=== PATIENT | male | born 1975 | race Caucasian/White ===

== ENCOUNTER 2020-07-24 06:36 | Outpatient (REF) | payer OTHER, SELFPAY ==
[2020-07-24 06:57] LABS: COVID-19 Test Negative (Negative)
== END 2020-07-24 06:37 | disposition home or self-care (01) ==
LOC: HO.LAB 06:36
PROVIDERS: Visit Provider Internal Medicine
DX: Z20.828 Contact with and (suspected) exposure to other viral communicable diseases (principal)
CPT/HCPCS: 87635

== ENCOUNTER 2020-10-16 12:10 | Outpatient (REF) | payer OTHER, SELFPAY ==
--- NOTE | 2020-10-16 12:21 | XR_ITS ---
EXAMINATION: XR CHEST CLINICAL INFORMATION: Dyspnea on exertion COMPARISON: None TECHNIQUE: 2 views of the chest were obtained. FINDINGS: There is mild cardiomegaly with mild prominence but vascularity but no congestion. The lungs are expanded and clear. No gross bony abnormality seen except for mild spondylosis dorsal spine. XR/XR chest 2V IMPRESSION: Mild cardiomegaly. No acute process.
== END 2020-10-16 12:11 | disposition home or self-care (01) ==
LOC: HO.XRAY 12:10
PROVIDERS: PCP Internal Medicine Sports Medicine; Visit Provider Physician Assistant
DX: I10 Essential (primary) hypertension (principal); R06.09 Other forms of dyspnea
CPT/HCPCS: 71046

== ENCOUNTER 2020-10-17 08:48 | Outpatient (REF) | payer OTHER, SELFPAY ==
--- NOTE | 2020-10-17 17:05 | PFT_ITS ---
INDICATIONS: 1. Dyspnea. 2. Shortness of breath. SPIROMETRY: The FEV1 to FVC 74% with an FEV1 of 1.67 L, which is 41% predicted and an FVC of 2.26 L, which is predicted. Post bronchodilator shows significant improvement of the FEV1 by 13%. Also to note, the patient has significant small airways disease. The maximum voluntary ventilation 53% predicted. LUNG VOLUMES: Total lung capacity only 60% predicted with an expiratory reserve volume of 16% predicted likely from elevated BMI. DIFFUSION CAPACITY: DLCO 73% predicted. It does correct to 131% predicted when correcting for the alveolar volume. COMPARISONS: None. INTERPRETATION: There is a moderate restrictive ventilatory defect likely secondary to his body habitus, although neuromuscular conditions cannot be ruled out. There is an obstructive physiology, although not definitively consistent. No definitive obstruction, although, has significant small airways disease, which could be attributed to asthma and also his morbid obesity. The was a significant response to bronchodilators. The Diffusion capacity was high when corrected for the alveolar volume. Clinical correlation warranted. MD SHANNON Madrigal/MODL / [id number] MTDD
== END 2020-10-17 08:49 | disposition home or self-care (01) ==
LOC: HO.RESP 08:48
PROVIDERS: Visit Provider Internal Medicine Pulmonary Disease
DX: R06.00 Dyspnea, unspecified (principal)
CPT/HCPCS: 94060; 94727; 94729

== ENCOUNTER → 2020-11-07 13:51 | Outpatient (REF) | payer OTHER, SELFPAY | LOC: HO.SL 13:51 | PROVIDERS: Visit Provider Internal Medicine Pulmonary Disease | DX: G47.33 Obstructive sleep apnea (adult) (pediatric) (principal) | CPT/HCPCS: 95806 ==

== ENCOUNTER → 2020-11-22 15:09 | Outpatient (BNVA) | payer OTHER, SELFPAY | PROVIDERS: PCP Internal Medicine Sports Medicine; Visit Provider Internal Medicine Pulmonary Disease | DX: R06.00 Dyspnea, unspecified (principal) ==

== ENCOUNTER → 2020-11-28 14:53 | Outpatient (REF) | payer OTHER, SELFPAY ==
--- NOTE | 2020-11-28 16:00 | CA_ITS ---
Transthoracic Echocardiogram Patient (Last, First, Middle): Denis Bower C Gender: Male Date of : 1975 Age: 45 Procedure Date: 11/28/2020 Procedure Type: Transthoracic Echocardiogram Location: OP Height: 177.8 cm Weight: 190.51 kg BSA: 2.86 m2 Heart Rate: bpm BP: 136 / 78 mmHg Egg Caser: SERJIO Referring MD: Carlton Tineo MD Symptoms: R06.00 - Dyspnea, unspecified Study Quality: Technically Difficult ECG Rhythm: Sinus Conclusions: - Visually estimated LVEF > 55%. - Valves not well visualized but no obvious pathology. - Otherwise, markedly limited study due to body habitus. Findings Procedure Information The patient receives contrast. Left Ventricle The left ventricle was not well visualized. Normal left ventricular cavity size. There is normal left ventricular wall thickness. The left ventricular systolic function is normal. Diastolic function is indeterminate on the basis of available data. Even with contrast use, difficult to assess wall motion. Visually estimated LVEF > 55%. Right Ventricle The right ventricle was not well visualized. Atria The left atrium was not well visualized. The right atrium was not well visualized. Aortic Valve The aortic valve was not well visualized. There is no aortic valve stenosis. There is no aortic valve regurgitation. Mitral Valve The mitral valve was not well visualized. No significant regurgitation or stenosis based on available images. Pulmonic Valve The pulmonic valve was not well visualized. Tricuspid Valve The tricuspid valve was not well visualized. There is no tricuspid valve regurgitation. Tricuspid regurgitation envelope is inadequate for calculation of right ventricular systolic pressure. Great Vessels The aorta was not well visualized. The aortic annulus and asc aorta are normal in size. Venous The inferior vena cava was not well visualized. Pericardium/Pleural There is no evidence of pericardial effusion. Prior Study Comparison No prior study available for comparison. Measurements M-Mode Liner Measurements Normals - Women/Men AOV Cusps: 3.30 1.5-2.6 cm/m2 2D Linear Measurements IVSd: 0.97 0.6-0.9/0.6-1.0 cm LVIDd: 5.55 3.9-5.3/4.2-5.9 cm LVIDd Index: 1.94 2.4-3.2/2.2-3.1 cm/m2 LVIDs: 4.74 2.0-3.6 cm LVPWd: 0.95 0.7-1.1 cm Ao Root: 3.20 2.1-3.5 cm LA Diam: 4.10 2.7-3.8/3.0-4.0 cm LAIDs Index: 1.43 1.5-2.3 cm/m2 LV Mass: 255.71 67-162/88-224 g LV Mass Index: 89.41 43-95/49-115 g/m2 Mitral Valve MV Pk E: 0.87 MV PK A: 0.87 MV Decel Time: 275.00 E/A: 1.00 PHT: 81.00 MVA PHT: 2.72 Decel [place]: 3.15 Aortic Valve AoV Pk Cesar: 1.40 AoV Pk Grad: 8.00 LVOT LVOT Pk Ceasr: 1.12 LVOT Mn Cesar: 0.76 LVOT VTI: 0.22 LVOT Pk Grad: 5.00 LVOT Mn Grad: 3.00 Diastolic Function MV Pk E: 0.87 MV Pk A: 0.87 E/A: 1.00 Great Vessels Aorta Ao Root-2D: 3.20 2.0-3.7 cm Ao Asc: 3.40 2.1-3.4 cm Pulmonary Valve PV Pk Cesar: 1.26 Peak PV Grad: 6.00 Updated in Other Vendor System with Status of Final Carl Hernandez MD electronically signed on 11/29/2020 4:38:47 PM with status of Final
== END ==
LOC: HO.CARD 14:53
PROVIDERS: Visit Provider Internal Medicine Pulmonary Disease
DX: R06.00 Dyspnea, unspecified (principal)
CPT/HCPCS: 93306; Q9957

== ENCOUNTER → 2021-03-07 15:25 | Outpatient (BNVA) | payer OTHER, SELFPAY | PROVIDERS: Visit Provider Internal Medicine Pulmonary Disease | DX: R06.00 Dyspnea, unspecified (principal) ==

== ENCOUNTER → 2021-06-06 15:35 | Outpatient (BNVA) | payer OTHER, SELFPAY | PROVIDERS: Visit Provider Internal Medicine Pulmonary Disease | DX: R06.00 Dyspnea, unspecified (principal); J45.909 Unspecified asthma, uncomplicated; G47.33 Obstructive sleep apnea (adult) (pediatric) ==

== ENCOUNTER → 2021-10-07 09:46 | Outpatient (BNVA) | payer OTHER, SELFPAY | PROVIDERS: PCP Internal Medicine; Visit Provider Internal Medicine Pulmonary Disease ==

== ENCOUNTER → 2021-10-10 15:50 | Outpatient (BNVA) | payer OTHER, SELFPAY | PROVIDERS: PCP Internal Medicine; Visit Provider Internal Medicine Pulmonary Disease ==

== ENCOUNTER → 2021-10-28 13:23 | Outpatient (BNVA) | payer OTHER, SELFPAY | PROVIDERS: PCP Internal Medicine; Visit Provider Internal Medicine Pulmonary Disease | DX: U09.9 Post COVID-19 condition, unspecified (principal); J45.909 Unspecified asthma, uncomplicated; R06.00 Dyspnea, unspecified; G47.33 Obstructive sleep apnea (adult) (pediatric) | CPT/HCPCS: 94618 ==

== ENCOUNTER → 2022-02-03 13:50 | Outpatient (BNVA) | payer OTHER, SELFPAY | PROVIDERS: PCP Internal Medicine; Visit Provider Internal Medicine Pulmonary Disease | DX: J45.909 Unspecified asthma, uncomplicated (principal) ==

== ENCOUNTER 2022-04-09 07:42 | Emergency (ER) | payer OTHER, SELFPAY ==
--- NOTE | ~2022-04-09 | XR_ITS ---
EXAMINATION: XR CHEST CLINICAL INFORMATION: Shortness breath. COMPARISON: October 16, 2020. TECHNIQUE: Portable AP view of the chest was obtained. XR/XR chest 1V FINDINGS/IMPRESSION: The study is limited by portable technique, low lung volumes, and overlying leads. There is no gross acute radiographic finding. No gross focal infiltrate, effusion, pneumothorax is seen. The cardiac silhouette is suboptimally evaluated. The mediastinum, diaphragm, and soft tissues appear unremarkable. There are mild degenerative changes of the spine.
--- NOTE | 2022-04-09 08:00 | ECG_ITS ---
Test Reason : dyspnea Blood Pressure : / mmHG Vent. Rate : 089 BPM Atrial Rate : 089 BPM P-R Int : 168 ms QRS Dur : 098 ms QT Int : 394 ms P-R-T Axes : 056 042 046 degrees QTc Int : 479 ms Normal sinus rhythm Possible Left atrial enlargement Borderline ECG No previous ECGs available Referred By: Elsie Cai Electronically Signed By:LIOR OJEDA MD
[2022-04-09 08:02] VITALS: BP 160/74; PULSE 90; RESP 20; TEMP 36.7; O2SAT 96; BMI 60.2
--- NOTE | 2022-04-09 08:10 | ED_ITS ---
HPI - General Adult General Chief complaint: Weakness Stated complaint: DIFF BREATHING Time Seen by Provider: 04/09/22 07:59 Source: patient, RN notes reviewed and old records reviewed Mode of arrival: ambulatory Limitations: no limitations History of Present Illness HPI narrative: This is a 46-year-old male, with past medical history asthma, hypertension, and BETSY, who presents to the emergency department with complaints of shortness of breath, dry cough, and fatigue since Wednesday, worsening today. Patient reports that over the last 4 days he has felt as though his asthma has been not controlled, currently taking Breo Ellipta and albuterol inhaler. He has been using his rescue inhaler 2 hours without relief. He is seen at [facility] yesterday and was given a Duo nebulizer updraft as well as prednisone 40 mg and Tessalon Perles, which has provided him with moderate relief yesterday however he feels as though his shortness of breath is worsened today. He had COVID-19, diagnosed on 09/20/2021. He had pneumonia shortly after and was also told he had an enlarged heart, has first cardiology appointment in May. He denies any chest pain, palpitations, fevers, chills, cough, abdominal pain, nausea, vomiting, or diarrhea. He denies any recent hospitalizations, surgeries, recent travels, blood clots or clotting disorders or previous cancer diagnosis. He has never been intubated for his asthma in the past. He is managed by heel boom operator, Dr. Tineo, last seen 02/15/22. No other complaints or concerns at this time. Onset (ago): day(s) Severity: moderate Severity scale (1-10): 5 Pain Consistency: constant Relieving factors: medication Exacerbating factors: movement Associated symptoms: denies other symptoms Treatments prior to arrival: other (albuterol inhaler 2 hours [employer]) Related Data Home Medications Medication Instructions Recorded Confirmed hydroxyzine HCl 25 mg tablet 25 mg PO BID PRN 10/17/20 lisinopril 30 mg tablet 30 mg PO DAILY 10/17/20 Previous Rx's Medication Instructions Recorded levofloxacin 750 mg tablet 750 mg PO DAILY 7 days #7 tabs 10/07/21 albuterol sulfate 90 mcg/actuation 2 puff PO Q4-6H PRN for wheezing 11/11/21 aerosol inhaler #8.5 grams Breo Ellipta 200 mcg-25 mcg/dose 1 ea PO DAILY #60 ea 03/23/22 powder for inhalation (fluticasone furoate-vilanterol) Allergies Allergy/AdvReac Type Severity Reaction Status Date / Time No Known Allergies Allergy Verified 02/03/22 13:53 Review of Systems Review of Systems: Constitutional: No Fever, No Chills, +Fatigue ENT/Mouth: No sore throat, No Rhinorrhea, No Swallowing Difficulty Eyes: No Eye Pain, No Swelling, No Redness Cardiovascular: No Chest Pain, + SOB, No Orthopnea, No Edema Respiratory: +Dry Cough, + Dyspnea, No Sputum, + Wheezing Gastrointestinal: No Nausea, No Vomiting, No Diarrhea, No abdominal Pain, No Hematochezia, No Melena Genitourinary: No Dysuria, No Urinary Frequency, No Hematuria Musculoskeletal: No joint pain, No Myalgias Skin: No Skin Lesions, No rash Neuro: No Weakness, No Numbness, No Dizziness, No Headache Psych: No Anxiety/Panic, No Depression Heme/Lymph: No Bruising, No Lymphadenopathy Endocrine: No Polyuria, No Polydipsia [facility] Past Medical History Medical History Asthma History of Hodgkin's lymphoma History of pulmonary embolism Hyperlipidemia Hypertension, essential, benign Morbid obesity with BMI of 60.0-69.9, adult BETSY (obstructive sleep apnea) Post covid-19 condition, unspecified (~08/2021) Surgical History History of tonsillectomy Social History Social History Patient Tobacco Use Status: Never used Tobacco Advance Directives: Yes Advance Directives Information Provided: Yes Advance Directives on File: No Physical Exam ED Vital Signs: Vital Signs - 24 hr 04/09/22 08:02 04/09/22 08:40 04/09/22 10:43 Temperature 98.1 F Pulse Rate 90 80 86 Respiratory Rate 20 16 21 H Blood Pressure 160/74 H 147/74 H Pulse Oximetry 96 92 Oxygen Delivery Method Room Air Room Air BMI result Body Mass Index 60.2 Const Other: Appearance: Alert. Oriented X3. No acute distress. Obese. Eyes: Pupils equal, round and reactive to light. EOMI ENT: Pharynx normal. Tonsils are nonerythematous, nonedematous, uvula is midline. TMs are nonerythematous, nonbulging. Neck: Normal inspection. Neck supple. CVS: Normal heart rate and rhythm. Pulses normal. Respiratory: Decreased breath sounds throughout, Expiratory wheezes in the right upper and right lower base. Speaks in 4-5 word sentences. No respiratory distress. Abdomen: Soft and nontender. +BS x4 Skin: Skin warm and dry. Normal skin color. Normal skin turgor. No rashes. Extremities: No lower extremity edema. Neuro: Oriented X 3. No motor deficit. No sensory deficit. Course Course Course Narrative: This is a 46-year-old male, with past medical history asthma and hypertension, who presents to the emergency department with complaints of shortness of breath and fatigue since Wednesday, worsening today. patient is hypertensive at 160/74, O2 saturation 96% on room air, all other vital signs are within normal limits. Plan: EKG, Chest x-ray, and labs ordered. Patient medicated with Albuterol 10mg updraft, magnesium 2g IV, and Solu-medrol 125mg IV. Reevaluation(s) Reevaluation #1: Patient currently receiving albuterol updraft. Lactic acid of 2.6. Ordered 1L of IV fluids. Patient vital signs remain stable at this time. Time: 09:05 Reevaluation #2: Patient was re-evaluated after updraft. Patient reports that he is feeling better and feels comfortable to go home. Lungs sounds improved, and wheezing resolved. Time: 10:35 Reevaluation #3: Patient's symptoms likely due to asthma exacerbation. Chest x-ray is unremarkable for acute pathology. BNP is negative, negative troponin, all ot her lab work is unremarkable today. Will discharge patient home. He has started a 5 day course of prednisone 40mg yesterday, advised to continue this plan. He also has a prescription for Tessalon for of advised that he can continue taking this medication if he finds any benefit. Patient instructed to follow-up with his heel boom operator, Dr. Tineo, educated that he would likely benefit from a [email or web address] machine at home. Stressed the importance of returning back to the emergency department if he develops any new or worsening shortness of breath, cough, chest pain, palpitations or any other worsening symptoms. Patient understands and agrees with this plan. Medical Decision Making Lab Data Result diagrams: 04/09/22 08:26 04/09/22 09:43 Labs: Lab Results 04/09/22 04/09/22 04/09/22 Range/Units 08:26 08:26 08:26 WBC 9.3 (4.8-10.8) X10*3/uL RBC 4.10 L (4.60-5.80) X10*6/uL Hgb 14.2 (14.0-18.0) g/dl Hct 42.1 (42.0-52.0) % MCV 102.7 H (80.0-98.0) fL MCH 34.6 H (27.0-33.0) pg MCHC 33.7 (31.0-36.0) g/dl RDW 13.4 (11.0-16.0) % Plt Count 186 (160-400) X10*3/uL MPV 9.5 (9.4-12.4) fL Immature Gran % (Auto) 0.5 H (0.0-0.4) % Neut % (Auto) 90.8 H (45-73) % Lymph % (Auto) 5.0 L (20-40) % Cuming % (Auto) 3.2 (2-11) % Eos % (Auto) 0.2 (0-4) % Baso % (Auto) 0.3 (0-2) % Lymph # (Auto) 0.5 L (1.2-4.9) X10*3/uL Cuming # (Auto) 0.3 (0.1-1.2) X10*3/uL Eos # (Auto) 0.0 (0.0-0.4) X10*3/uL Baso # (Auto) 0.0 (0.0-0.2) X10*3/uL Abs Immat Gran (auto) 0.05 H (0.00-0.03) X10*3/uL Absolute Neuts (auto) 8.4 H (2.0-8.3) x10*3/uL Absolute Nucleated RBC 0.000 (0.0-0.012) X10*3/uL Nucleated RBC % (auto) 0.0 (0.0-0.2) /100WBC Sodium (135-145) mmol/L Potassium (3.3-5.1) mmol/L Chloride (96-108) mmol/L Carbon Dioxide (22-29) mmol/L Anion Gap (12-20) BUN (9-16) mg/dL Creatinine (0.5-1.4) mg/dL Estim Creat Clear Calc Estimated GFR Random Glucose (60-115) mg/dL Lactic Acid (0.5-2.0) mmol/L Calcium (8.4-10.2) mg/dL Magnesium (1.6-2.6) mg/dL Total Bilirubin (0.0-1.0) mg/dL Direct Bilirubin (0.0-0.5) mg/dL AST (5-37) U/L ALT (0-40) U/L Alkaline Phosphatase (39-117) U/L Troponin I High Sens 3.9 (<3.5-35.0) ng/L B-Natriuretic Peptide 68 (<100) pg/mL Total Protein (6.5-8.0) g/dL Albumin (3.5-5.0) g/dL Procalcitonin ng/mL COVID-19 (RENEA) Negative (Negative) COVID-19 Clin Com See Note 04/09/22 04/09/22 04/09/22 Range/Units 08:35 09:43 09:43 WBC (4.8-10.8) X10*3/uL RBC (4.60-5.80) X10*6/uL Hgb (14.0-18.0) g/dl Hct (42.0-52.0) % MCV (80.0-98.0) fL MCH (27.0-33.0) pg MCHC (31.0-36.0) g/dl RDW (11.0-16.0) % Plt Count (160-400) X10*3/uL MPV (9.4-12.4) fL Immature Gran % (Auto) (0.0-0.4) % Neut % (Auto) (45-73) % Lymph % (Auto) (20-40) % Cuming % (Auto) (2-11) % Eos % (Auto) (0-4) % Baso % (Auto) (0-2) % Lymph # (Auto) (1.2-4.9) X10*3/uL Cuming # (Auto) (0.1-1.2) X10*3/uL Eos # (Auto) (0.0-0.4) X10*3/uL Baso # (Auto) (0.0-0.2) X10*3/uL Abs Immat Gran (auto) (0.00-0.03) X10*3/uL Absolute Neuts (auto) (2.0-8.3) x10*3/uL Absolute Nucleated RBC (0.0-0.012) X10*3/uL Nucleated RBC % (auto) (0.0-0.2) /100WBC Sodium 137 (135-145) mmol/L Potassium 4.5 (3.3-5.1) mmol/L Chloride 99 (96-108) mmol/L Carbon Dioxide 24 (22-29) mmol/L Anion Gap 19 (12-20) BUN 10 (9-16) mg/dL Creatinine 0.71 (0.5-1.4) mg/dL Estim Creat Clear Calc 220.6 Estimated GFR > 60 Random Glucose 125 H (60-115) mg/dL Lactic Acid 2.6 H* (0.5-2.0) mmol/L Calcium 9.4 (8.4-10.2) mg/dL Magnesium 2.1 (1.6-2.6) mg/dL Total Bilirubin 0.9 (0.0-1.0) mg/dL Direct Bilirubin 0.4 (0.0-0.5) mg/dL AST 33 (5-37) U/L ALT 38 (0-40) U/L Alkaline Phosphatase 103 (39-117) U/L Troponin I High Sens (<3.5-35.0) ng/L B-Natriuretic Peptide (<100) pg/mL Total Protein 7.5 (6.5-8.0) g/dL Albumin 4.2 (3.5-5.0) g/dL Procalcitonin 0.11 ng/mL COVID-19 (RENEA) (Negative) COVID-19 Clin Com Imaging Data Chest x-ray: Attestation: I personally reviewed and interpreted this imaging study as follows: Radiologist's impression: CLINICAL INFORMATION: Shortness breath. COMPARISON: October 16, 2020. TECHNIQUE: Portable AP view of the chest was obtained. XR/XR chest 1V FINDINGS/IMPRESSION: ? The study is limited by portable technique, low lung volumes, and overlying leads. ? There is no gross acute radiographic finding. ? No gross focal infiltrate, effusion, pneumothorax is seen. ? The cardiac silhouette is suboptimally evaluated. The mediastinum, diaphragm, and soft tissues appear unremarkable. ? There are mild degenerative changes of the spine. Dictated By: Evgeny Branch ECG Data Attestation: I personally reviewed and interpreted this ECG as follows: Prior ECG tracings: available for review Interpretation: Normal sinus rhythm at 89BPM, PA interval 168, QT/QTC 394/479. T-wave inversion in V1 and V2. No ST elevations or depressions. No previous EKG on file for comparison. Critical Care Time Critical Care Time Critical Care Time: Yes Total Critical Care Time: 35 Attestation: I have personally provided critical care time exclusive of time spent on separately billable procedures. Time includes review of lab data, radiology results,frequent bedside reassessments, and monitoring for potential decompensation. Intervention performed as documented. Discharge Plan Discharge Clinical Impression: Asthma Patient Disposition: Home, Self-Care Instructions: Asthma (ED) Additional Instructions: Your symptoms today are likely due to an asthma exacerbation. Your chest x-ray was negative for any pneumonia. Please continue course of prednisone, you can take your dose today. Please continue taking your albuterol inhaler as needed for shortness of breath. You may also continue taking Tessalon Perles given to you at [facility] as needed for cough. Please follow up with your heel boom operator, Dr. Tineo. If you develop new or worsening symptoms call 911 or come back to the ER for further evaluation. Prescriptions: No Action albuterol sulfate 90 mcg/actuation HFA aerosol inhaler 2 puff PO Q4-6H PRN (Reason: for wheezing) Qty: 8.5 0RF Breo Ellipta 200-25 mcg/dose blister with device 1 ea PO DAILY Qty: 60 0RF lisinopril 30 mg tablet 30 mg PO DAILY hydroxyzine HCl 25 mg tablet 25 mg PO BID PRN levofloxacin 750 mg tablet 750 mg PO DAILY 7 Days Qty: 7 0RF
[2022-04-09 08:34] LABS: Basophils Percent Auto 0.3 % (0-2); Eosinophils Percent Auto 0.2 % (0-4); Hematocrit 42.1 % (42.0-52.0); Hemoglobin 14.2 g/dl (14.0-18.0); Imm Gran Abs Auto 0.05 X10*3/uL (0.00-0.03); Imm Gran Pct Auto 0.5 % (0.0-0.4); Lymphocytes Absolute Auto 0.5 X10*3/uL (1.2-4.9); MANUAL DIFF FLAG SCAN; Mean Corpuscular HGB Conc 33.7 g/dl (31.0-36.0); Mean Corpuscular Hemoglobin 34.6 pg (27.0-33.0); Mean Corpuscular Volume 102.7 fL (80.0-98.0); Mean Platelet Volume 9.5 fL (9.4-12.4); Monocytes Absolute Auto 0.3 X10*3/uL (0.1-1.2); Monocytes Percent Auto 3.2 % (2-11); Neutrophils Absolute Auto 8.4 x10*3/uL (2.0-8.3); Neutrophils Percent Auto 90.8 % (45-73); Platelet Count 186 X10*3/uL (160-400); Red Cell Distribution Width 13.4 % (11.0-16.0); SCAN SMEAR FLAG 1; White Blood Count 9.3 X10*3/uL (4.8-10.8)
[2022-04-09] MEDS: Magnesium Sulfate/H2O 2 GM/50 ML PIGGYBACK IV (08:36)
[2022-04-09] MEDS: methylPREDNISolone Sod Succ 125 MG/2 ML VIAL IVPUSH (08:37)
[2022-04-09] MEDS: Albuterol Sulfate (0.083%) 2.5 MG/3 ML VIAL.NEB 10 MG INHALE (08:39)
[2022-04-09 08:40] VITALS: PULSE 80; RESP 16; O2SAT 94
[2022-04-09 08:49] LABS: COVID-19 Test Negative (Negative); IDNOW Serial# 16C4AD1C
[2022-04-09 08:54] LABS: B Type Natriuretic Peptide 68 pg/mL (<100); Troponin-I High Sensitivity 3.9 ng/L (<3.5-35.0)
[2022-04-09 08:59] LABS: Lactic Acid 2.6 mmol/L (0.5-2.0)
[2022-04-09] MEDS: 0.9 % Sodium Chloride 1,000 ML 999 ML IVCONT (09:10)
[2022-04-09 10:35] LABS: Alanine Aminotransferase 38 U/L (0-40); Albumin Level 4.2 g/dL (3.5-5.0); Alkaline Phosphatase 103 U/L (39-117); Anion Gap 19 (12-20); Aspartate Amino Transferase 33 U/L (5-37); Bilirubin Direct 0.4 mg/dL (0.0-0.5); Bilirubin Total 0.9 mg/dL (0.0-1.0); Blood Urea Nitrogen 10 mg/dL (9-16); Calcium 9.4 mg/dL (8.4-10.2); Carbon Dioxide 24 mmol/L (22-29); Chloride 99 mmol/L (96-108); Creatinine Clr Calc Pharmacy 220.6; Estimated Glomerular Filt Rate > 60; Glucose Random 125 mg/dL (60-115); Magnesium 2.1 mg/dL (1.6-2.6); Potassium 4.5 mmol/L (3.3-5.1); Sodium 137 mmol/L (135-145); Total Protein 7.5 g/dL (6.5-8.0)
[2022-04-09 10:39] LABS: Reflex Lactate? Lactic Acid Added
[2022-04-09 10:43] VITALS: BP 147/74; PULSE 86; RESP 21; O2SAT 92
[2022-04-09 10:53] LABS: Procalcitonin 0.11 ng/mL
[2022-04-09 11:03] LABS: SLIDE REVIEW VERIFIED
== END 2022-04-09 11:09 | disposition home or self-care (01) ==
PROVIDERS: Physician Assistant; Emergency Provider Emergency Medicine
DX: J45.909 Unspecified asthma, uncomplicated (principal); R06.02 Shortness of breath; Z20.822 Contact with and (suspected) exposure to COVID-19; Z79.899 Other long term (current) drug therapy
CPT/HCPCS: 36415; 71045; 80048; 80076; 83605; 83735; 83880; 84145; 84484; 85025; 87040; 87635; 93005; 94640; 94644; 99285; J2930; J3475

== ENCOUNTER 2022-04-13 07:19 | Observation (INO) | payer OTHER, SELFPAY ==
[2022-04-13] VITALS (9 sets, daily range): BP systolic 140–172; BP diastolic 60–89; PULSE 68–108; RESP 16–22; TEMP 36.3–36.8; O2SAT 93–96; BMI 60.2
--- NOTE | ~2022-04-13 | XR_ITS ---
EXAMINATION: XR CHEST CLINICAL INFORMATION: Shortness of breath. History of asthma. COMPARISON: April 09, 2022 and October 16, 2020 TECHNIQUE: PA view of the chest was obtained. FINDINGS: The cardiopericardial silhouette is mildly enlarged. There is no evidence of acute parenchymal disease, pneumothorax, or pleural effusion. No evidence of pulmonary edema. XR/XR chest 1V IMPRESSION: No acute disease.
[2022-04-13 08:11] LABS: MANUAL DIFF FLAG NO
[2022-04-13 08:25] LABS: Basophils Percent Auto 0.3 % (0-2); Eosinophils Absolute Auto 0.3 X10*3/uL (0.0-0.4); Eosinophils Percent Auto 3.5 % (0-4); Hematocrit 40.6 % (42.0-52.0); Hemoglobin 13.4 g/dl (14.0-18.0); Imm Gran Abs Auto 0.05 X10*3/uL (0.00-0.03); Imm Gran Pct Auto 0.7 % (0.0-0.4); Lymphocytes Absolute Auto 0.5 X10*3/uL (1.2-4.9); Lymphocytes Percent Auto 6.5 % (20-40); Mean Corpuscular Hemoglobin 33.4 pg (27.0-33.0); Mean Corpuscular Volume 101.2 fL (80.0-98.0); Mean Platelet Volume 9.3 fL (9.4-12.4); Monocytes Absolute Auto 0.4 X10*3/uL (0.1-1.2); Monocytes Percent Auto 5.8 % (2-11); Neutrophils Percent Auto 83.2 % (45-73); Platelet Count 140 X10*3/uL (160-400); Red Blood Count 4.01 X10*6/uL (4.60-5.80); Red Cell Distribution Width 13.6 % (11.0-16.0); White Blood Count 7.2 X10*3/uL (4.8-10.8)
[2022-04-13 08:35] LABS: Alanine Aminotransferase 48 U/L (0-40); Albumin Level 4.1 g/dL (3.5-5.0); Alkaline Phosphatase 89 U/L (39-117); Anion Gap 14 (12-20); Aspartate Amino Transferase 45 U/L (5-37); Bilirubin Total 1.4 mg/dL (0.0-1.0); Blood Urea Nitrogen 20 mg/dL (9-16); Calcium 8.7 mg/dL (8.4-10.2); Carbon Dioxide 34 mmol/L (22-29); Chloride 92 mmol/L (96-108); Creatinine Clr Calc Pharmacy 193.4; Estimated Glomerular Filt Rate > 60; Glucose Random 110 mg/dL (60-115); Potassium 3.9 mmol/L (3.3-5.1); Sodium 136 mmol/L (135-145); Total Protein 6.8 g/dL (6.5-8.0)
[2022-04-13 08:38] LABS: COVID-19 Test Negative (Negative)
[2022-04-13 08:40] LABS: B Type Natriuretic Peptide 82 pg/mL (<100)
[2022-04-13] MEDS: Albuterol Sulfate (0.083%) 2.5 MG/3 ML VIAL.NEB 10 MG INHALE (11:13)
[2022-04-13 11:38] LABS: D Dimer High Sensitivity 153 NG/ML
--- NOTE | 2022-04-13 12:05 | ED_ITS ---
HPI - SOB/Dyspnea General Chief Complaint: Dyspnea Stated Complaint: diff breathing Time Seen by Provider: 04/13/22 10:40 Source: patient Mode of arrival: ambulatory Limitations: no limitations History of Present Illness HPI Narrative: Patient presents emergency department for evaluation of difficulty breathing honey rtness of breath. He reports that he was evaluated at an urgent care 03/29 and was given a prescription for a prednisone taper which he completed yesterday. Additionally he was seen in the emergency department 04/09 for difficulty breathing, at that time he was discharged home with an asthma exacerbation. He reports coming back to the emergency department today as he is still feeling significantly dyspnea on exertion. At rest he has some shortness of breath. Reports he has been using his albuterol inhaler every 4 hours at home. Denies headache, dizziness, lightheadedness, chest pain, palpitations, nausea, vomiting, abdominal pain, generalized weakness, numbness or tingling in his extremities. Denies past history of DVT/PE, reports past medical history of Hodgkin's lymphoma in remission. Related Data Home Medications Medication Instructions Recorded Confirmed lisinopril 30 mg tablet 30 mg PO DAILY 10/17/20 04/13/22 fluticasone propionate 50 1 spray intranasal DAILY 04/13/22 04/13/22 mcg/actuation nasal spray,suspension hydrochlorothiazide 25 mg tablet 25 mg PO DAILY 04/13/22 04/13/22 Previous Rx's Medication Instructions Recorded albuterol sulfate 90 mcg/actuation 2 puff PO Q4-6H PRN for wheezing 11/11/21 aerosol inhaler #8.5 grams Breo Ellipta 200 mcg-25 mcg/dose 1 ea PO DAILY #60 ea 03/23/22 powder for inhalation (fluticasone furoate-vilanterol) Allergies Allergy/AdvReac Type Severity Reaction Status Date / Time No Known Allergies Allergy Verified 02/03/22 13:53 Review of Systems Review of Systems: Constitutional : No Fever, No Chills ENT/Mouth : No sore throat, No Rhinorrhea, No Swallowing Difficulty Eyes: No Eye Pain, No Swelling, No Redness Cardiovascular : No Chest Pain, positive SOB, positive Orthopnea, no Edema Respiratory : No Cough, No Sputum, No Wheezing, positive dyspnea Gastrointestinal : No Nausea, No Vomiting, No Diarrhea, No abdominal Pain, No Hematochezia, No Melena Genitourinary : No Dysuria, No Urinary Frequency, No Hematuria Musculoskeletal : No joint pain, No Myalgias Skin : No Skin Lesions, No rash Neuro : No Weakness, No Numbness, No Dizziness, No Headache Psych : No Anxiety/Panic, No Depression Heme/Lymph: No Bruising, No Lymphadenopathy Endocrine : No Polyuria, No Polydipsia Yes all other systems are reviewed and are negative [facility] Past Medical History Source: old records reviewed Medical History (Updated 04/13/22 @ 16:24 by Evangelista Trotter MD) Asthma History of Hodgkin's lymphoma History of pulmonary embolism Hyperlipidemia Hypertension, essential, benign Moderate persistent asthma Morbid obesity with BMI of 60.0-69.9, adult BETSY (obstructive sleep apnea) Post covid-19 condition, unspecified (~08/2021) Surgical History History of tonsillectomy Social History Social History Patient Tobacco Use Status: Never used Tobacco Advance Directives: Yes Advance Directives Information Provided: Yes Advance Directives on File: No Physical Exam Vital Signs: Vital Signs: Last Vital Signs Temp 97.4 F 04/13/22 16:00 Pulse 68 04/13/22 16:00 Resp 16 04/13/22 16:00 BP 172/89 H 04/13/22 16:00 Pulse Ox 95 04/13/22 16:00 O2 Del Method 04/13/22 16:00 BMI result Body Mass Index 60.2 Appearance: Alert.?Oriented to person, place and time. No acute distress.?Normal affect. Eyes: Pupils equal, round and reactive to light.? ENT: Pharynx normal.?? Neck: Normal inspection.? Neck supple.?? CVS: Heart sounds normal. Normal heart rate and rhythm.? Pulses normal.?? Respiratory: No respiratory distress.? Lung sounds clear at the apices, diminished at the bilateral bases Abdomen: Soft and non-tender. Normoactive bowel sounds. No pulsatile mass.?? Skin: Skin warm and dry.? Normal skin color.? Normal skin turgor.?? Extremities: No lower extremity edema.? No calf ttp? Neuro: Moves all extremities spontaneously. Sensation intact bilaterally. CN II- XII intact. No focal neuro deficits. Ambulates with normal steady gait. Course Course Course Narrative: Patient is a 46-year-old male with a past medical history of asthma, hypertension, obstructive sleep apnea with CPAP, hyperlipidemia, Hodgkin's lymphoma in remission since 2010. He presents emergency department today for evaluation of dyspnea on exertion. Recently being treated for an asthma exacerbation, having completed a course of prednisone 2 days ago. Will obtain CBC to evaluate for leukocytosis/ anemia, CMP to evaluate for abnormal electrolytes /abnormal renal function/ abnormal hepatic function, EKG and troponin to evaluate for ischemia/ACS. D-dimer to exclude pulmonary embolism. Chest x-ray to evaluate for consolidation/ infiltrate/ mass/ pulmonary congestion. Patient received albuterol 10 mg updraft, in addition to prednisone orally. Reevaluation(s) Reevaluation #1: Received albuterol 10 mg nebulizer, with improvement in his symptoms, increased air movement. Able to ambulate throughout the ED with O2 saturation maintaining greater than 93%, mild tachycardia at 108, were patient does report feeling significantly dyspnea during that time. Labs overall unremarkable, D-Dimer 153, unlikely pulmonary embolism. Troponin 4.0, EKG reveals normal sinus rhythm, consistent with prior EKG on 04/09, however QT slightly longer at this time, 497, shortness of breath unlikely secondary to ACS. Spoke with patient at this time, he does not feel comfortable with being discharged home. Peak flow 200, for his height and age should be greater than 600. Suspect that his dyspnea on exertion continues to be secondary to asthma exacerbation, discussed with hospitalist, Dr. Trotter, accepted patient for admission for asthma exacerbation. Time: 13:08 MDM - SOB/Dyspnea Medical Records Attestation: I reviewed the patient's medical records. Lab Data Attestation: I reviewed the patient's lab results. Result diagrams: 04/13/22 07:56 04/13/22 07:56 Labs: Lab Results 04/13/22 04/13/22 04/13/22 Range/Units 07:56 07:56 07:56 WBC 7.2 (4.8-10.8) X10*3/uL RBC 4.01 L (4.60-5.80) X10*6/uL Hgb 13.4 L (14.0-18.0) g/dl Hct 40.6 L (42.0-52.0) % MCV 101.2 H (80.0-98.0) fL MCH 33.4 H (27.0-33.0) pg MCHC 33.0 (31.0-36.0) g/dl RDW 13.6 (11.0-16.0) % Plt Count 140 L (160-400) X10*3/uL MPV 9.3 L (9.4-12.4) fL Immature Gran % (Auto) 0.7 H (0.0-0.4) % Neut % (Auto) 83.2 H (45-73) % Lymph % (Auto) 6.5 L (20-40) % [place] % (Auto) 5.8 (2-11) % Eos % (Auto) 3.5 (0-4) % Baso % (Auto) 0.3 (0-2) % Lymph # (Auto) 0.5 L (1.2-4.9) X10*3/uL [place] # (Auto) 0.4 (0.1-1.2) X10*3/uL Eos # (Auto) 0.3 (0.0-0.4) X10*3/uL Baso # (Auto) 0.0 (0.0-0.2) X10*3/uL Abs Immat Gran (auto) 0.05 H (0.00-0.03) X10*3/uL Absolute Neuts (auto) 6.0 (2.0-8.3) x10*3/uL Absolute Nucleated RBC 0.000 (0.0-0.012) X10*3/uL Nucleated RBC % (auto) 0.0 (0.0-0.2) /100WBC D-Dimer High Sensitivty NG/ML Sodium 136 (135-145) mmol/L Potassium 3.9 (3.3-5.1) mmol/L Chloride 92 L (96-108) mmol/L Carbon Dioxide 34 H (22-29) mmol/L Anion Gap 14 (12-20) BUN 20 H D (9-16) mg/dL Creatinine 0.81 (0.5-1.4) mg/dL Estim Creat Clear Calc 193.4 Estimated GFR > 60 Random Glucose 110 (60-115) mg/dL Calcium 8.7 D (8.4-10.2) mg/dL Total Bilirubin 1.4 H (0.0-1.0) mg/dL AST 45 H (5-37) U/L ALT 48 H (0-40) U/L Alkaline Phosphatase 89 (39-117) U/L Troponin I High Sens 4.0 (<3.5-35.0) ng/L B-Natriuretic Peptide 82 (<100) pg/mL Total Protein 6.8 (6.5-8.0) g/dL Albumin 4.1 (3.5-5.0) g/dL COVID-19 (RENEA) (Negative) COVID-19 Clin Com 04/13/22 04/13/22 Range/Units 07:56 11:19 WBC (4.8-10.8) X10*3/uL RBC (4.60-5.80) X10*6/uL Hgb (14.0-18.0) g/dl Hct (42.0-52.0) % MCV (80.0-98.0) fL MCH (27.0-33.0) pg MCHC (31.0-36.0) g/dl RDW (11.0-16.0) % Plt Count (160-400) X10*3/uL MPV (9.4-12.4) fL Immature Gran % (Auto) (0.0-0.4) % Neut % (Auto) (45-73) % Lymph % (Auto) (20-40) % [place] % (Auto) (2-11) % Eos % (Auto) (0-4) % Baso % (Auto) (0-2) % Lymph # (Auto) (1.2-4.9) X10*3/uL [place] # (Auto) (0.1-1.2) X10*3/uL Eos # (Auto) (0.0-0.4) X10*3/uL Baso # (Auto) (0.0-0.2) X10*3/uL Abs Immat Gran (auto) (0.00-0.03) X10*3/uL Absolute Neuts (auto) (2.0-8.3) x10*3/uL Absolute Nucleated RBC (0.0-0.012) X10*3/uL Nucleated RBC % (auto) (0.0-0.2) /100WBC D-Dimer High Sensitivty 153 NG/ML Sodium (135-145) mmol/L Potassium (3.3-5.1) mmol/L Chloride (96-108) mmol/L Carbon Dioxide (22-29) mmol/L Anion Gap (12-20) BUN (9-16) mg/dL Creatinine (0.5-1.4) mg/dL Estim Creat Clear Calc Estimated GFR Random Glucose (60-115) mg/dL Calcium (8.4-10.2) mg/dL Total Bilirubin (0.0-1.0) mg/dL AST (5-37) U/L ALT (0-40) U/L Alkaline Phosphatase (39-117) U/L Troponin I High Sens (<3.5-35.0) ng/L B-Natriuretic Peptide (<100) pg/mL Total Protein (6.5-8.0) g/dL Albumin (3.5-5.0) g/dL COVID-19 (RENEA) Negative (Negative) COVID-19 Clin Com See Note Imaging Data Chest x-ray: Radiologist's impression: FINDINGS: The cardiopericardial silhouette is mildly enlarged. There is no evidence of acute parenchymal disease, pneumothorax, or pleural effusion. No evidence of pulmonary edema. XR/XR chest 1V IMPRESSION: No acute disease. ECG Data Attestation: I personally reviewed and interpreted this ECG as follows: ECG interpretation date: 04/13/22 Interpretation: Rate: 86 Rhythm:? Normal sinus rhythm [place]:? Normal Normal P waves.? Normal REJI.?? Normal QRS complex.?? ST T wave :??No ST elevation, no ST depression qTC: 497 prior studies:? March 2022 The study has been interpreted contemporaneously by me. Discharge Plan Discharge Clinical Impression: Asthma with exacerbation Patient Disposition: Admitted As Inpatient
--- NOTE | 2022-04-13 12:13 | ECG_ITS ---
Test Reason : dyspnea Blood Pressure : / mmHG Vent. Rate : 086 BPM Atrial Rate : 086 BPM P-R Int : 170 ms QRS Dur : 102 ms QT Int : 416 ms P-R-T Axes : 057 049 042 degrees QTc Int : 497 ms Normal sinus rhythm Nonspecific ST abnormality Prolonged QT Abnormal ECG When compared with ECG of 09-APR-2022 07:41, No significant change was found Referred By: Elina Aceves Electronically Signed By:Justin Aguayo
[2022-04-13] MEDS: predniSONE 20 MG TABLET 60 MG PO (13:21)
--- NOTE | 2022-04-13 16:01 | PM.IMHP ---
History of Present Illness Date of Service: 04/13/22 Chief Complaint: Shortness of breath 46 year old male with past medical history morbid obesity BMI of 60,moderate persistent asthma, hypertension, obstructive sleep apnea uses CPAP, hyperlipidemia, Hodgkin's lymphoma in remission since 2010.? He comes in because of shortness of breath that is ongoing for sevral days, worst with exertion associated with no fever or chils, dry cough, of note he completed a course of corticosteroid for asthma just 2 days earlier for presumed exacerbation of asthma. CXR is fine, normal WBC, negative covid, normal BNP,. Review of Systems Review of Systems: Gen: no fever Resp: +sob, no cough CV: no chest, no GARCIAS, no leg edema GI: No n/v, no abd pain Neuro: No confusion [facility] Medical History (Updated 04/13/22 @ 16:24 by Evangelista Trotter MD) Asthma History of Hodgkin's lymphoma History of pulmonary embolism Hyperlipidemia Hypertension, essential, benign Moderate persistent asthma Morbid obesity with BMI of 60.0-69.9, adult BETSY (obstructive sleep apnea) Post covid-19 condition, unspecified (~08/2021) Surgical History History of tonsillectomy Social History Patient Tobacco Use Status: Never used Tobacco Advance Directives: Yes Advance Directives Information Provided: Yes Advance Directives on File: No Meds Allergies Allergy/AdvReac Type Severity Reaction Status Date / Time No Known Allergies Allergy Verified 02/03/22 13:53 Home Medications Medication Instructions Recorded Confirmed Last Taken Type lisinopril 30 mg tablet 30 mg PO DAILY 10/17/20 04/13/22 04/13/22 History fluticasone propionate 50 1 spray intranasal DAILY 04/13/22 04/13/22 04/13/22 History mcg/actuation nasal spray,suspension hydrochlorothiazide 25 mg tablet 25 mg PO DAILY 04/13/22 04/13/22 04/13/22 History Physical Exam Vital Signs and Narrative: Vital Signs: Last Vital Signs Temp 97.8 F 04/13/22 07:34 Pulse 108 H 04/13/22 11:54 Resp 22 H 04/13/22 11:54 BP 140/69 H 04/13/22 10:24 Pulse Ox 93 04/13/22 11:54 O2 Del Method 04/13/22 11:54 BMI result Body Mass Index 60.2 Const: Other: Constitutional: Alert, in no distress, overweight. Mental Status: Oriented to person, place and time. Eyes: Pupils are equal, round and reactive to light. Ear, Nose and Throat: Oropharynx clear, mucous membranes moist. Ears and nose without eformities. Trachea midline. Respiratory: diminish air entry, no wheezes, no accessory muslce usei. Cardiovascular: S1 S2 regular. No murmurs, rubs or gallops. Gastrointestinal: Abdomen soft, non-tender, non-distended. Normal bowel sounds.? Neurologic: Cranial nerves II-XII grossly intact. No focal neurological deficits. Moves all extremities spontaneously.? Skin: No rashes or lesions.? Musculoskeletal: No cyanosis or clubbing. Psychiatric: Normal mood and affect? Results Labs CBC and Chem 7: 04/13/22 07:56 04/13/22 07:56 Labs: Laboratory Results - last 24 hr 04/13/22 04/13/22 04/13/22 07:56 07:56 07:56 MCV 101.2 H MCH 33.4 H MCHC 33.0 RDW 13.6 Plt Count 140 L MPV 9.3 L Immature Gran % (Auto) 0.7 H Neut % (Auto) 83.2 H Lymph % (Auto) 6.[address] [place] % (Auto) 5.8 Eos % (Auto) 3.5 Baso % (Auto) 0.3 Lymph # (Auto) 0.[address] [place] # (Auto) 0.4 Eos # (Auto) 0.3 Baso # (Auto) 0.0 Abs Immat Gran (auto) 0.05 H Absolute Neuts (auto) 6.0 Absolute Nucleated RBC 0.000 Nucleated RBC % (auto) 0.0 D-Dimer High Sensitivty Anion Gap 14 Estim Creat Clear Calc 193.4 Estimated GFR > 60 Random Glucose 110 Calcium 8.7 D Total Bilirubin 1.4 H AST 45 H ALT 48 H Alkaline Phosphatase 89 Troponin I High Sens 4.0 B-Natriuretic Peptide 82 Total Protein 6.8 Albumin 4.1 COVID-19 (RENEA) COVID-19 Clin Com 04/13/22 04/13/22 07:56 11:19 MCV MCH MCHC RDW Plt Count MPV Immature Gran % (Auto) Neut % (Auto) Lymph % (Auto) [place] % (Auto) Eos % (Auto) Baso % (Auto) Lymph # (Auto) [place] # (Auto) Eos # (Auto) Baso # (Auto) Abs Immat Gran (auto) Absolute Neuts (auto) Absolute Nucleated RBC Nucleated RBC % (auto) D-Dimer High Sensitivty 153 Anion Gap Estim Creat Clear Calc Estimated GFR Random Glucose Calcium Total Bilirubin AST ALT Alkaline Phosphatase Troponin I High Sens B-Natriuretic Peptide Total Protein Albumin COVID-19 (RENEA) Negative COVID-19 Clin Com See Note Imaging Radiologist's Impressions: Impressions Chest X-Ray 04/13/22 08:11 IMPRESSION: No acute disease. Assessment and Plan (1) Moderate persistent asthma with (acute) exacerbation: Status: Acute Plan 1/moderate persistent ashtma witha cute exacerbation IV steroid, bronchodilators by Neb 2/HTN continue home meds 3/super morbid Obesity--affecting his health woth BETSY, drastic weight loss advised via exercise, diet.. Bariatric surgery as last resort 4/BETSY CPAP at night Quality Stroke Does the patient have a stroke diagnosis?: No VTE Prior VTE?: No VTE Risk Level:: Medical - low VTE Device Contraindication: N/A - Device Ordered VTE Drug Contraindication: Treatment Not Indicated
--- NOTE | 2022-04-13 16:17 | PHA.MEDREC ---
MED REC COMPLETE, NO ISSUES Pharmacy Consult ? Medication Reconciliation Pharmacy has completed the medication reconciliation.
[2022-04-13] MEDS: Fluticasone Propionate Nasal 16 GM SPRAY 1 SPRAY NOSTRIL-B (17:11)
[2022-04-13] MEDS: methylPREDNISolone Sod Succ 40 MG/ML VIAL IVPUSH ×2 (18:10→22:42)
[2022-04-13] MEDS: Albuterol Sulfate (0.083%) 2.5 MG/3 ML VIAL.NEB INHALE (19:02)
[2022-04-14] VITALS (7 sets, daily range): BP systolic 141–176; BP diastolic 64–80; PULSE 58–90; RESP 16–19; TEMP 35.8–36.6; O2SAT 91–96
[2022-04-14] MEDS: 0.9 % Sodium Chloride Flush 3 ML SYRINGE IVFLUSH ×2 (00:23→10:05)
[2022-04-14] MEDS: methylPREDNISolone Sod Succ 40 MG/ML VIAL IVPUSH ×2 (05:35→10:04)
[2022-04-14] MEDS: Albuterol Sulfate (0.083%) 2.5 MG/3 ML VIAL.NEB INHALE ×2 (08:05→10:51)
[2022-04-14] MEDS: Fluticasone/Vilanterol 200/25 BLST.W.DEV 1 PUFF INHALE (08:08)
--- NOTE | 2022-04-14 09:12 | P.CONPL_ITS ---
History of Present Illness History of Present Illness Consult date: 04/14/22 Chief complaint: asthma ex Narrative: This is an inpatient pulmonary consultation. The patient is a 46 year old male with past medical history morbid obesity BMI of 60,moderate persistent asthma, hypertension, obstructive sleep apnea uses? CPAP, hyperlipidemia, Hodgkin's lymphoma in remission since 2010.? The patient states that he has not been cell since he developed COVID back in September. He has been more short of breath. He comes in because of shortness of breath that is ongoing for several days, worst with exertion associated with no fever or chils, dry cough, of note he completed a course of corticosteroid for asthma just 2 days earlier for asthma. The patient also has been using CPAP. He has been waking up at nighttime short of breath. Feels like the CPAP is not given enough pressure. He has not been able to sleep because of that issue. On the day of the admission the patient was brought to work by his dad and when he stepped outside was very humid any may be very difficult for him to breathe. Therefore he decided to go to the ER. At this point the patient is feeling a lot better. His breathing is closer to his baseline. He is not having any significant wheezing. And also had have great response to his CPAP last night that he use the hospital 1 with a CPAP of 10 cm in a fullface mask. I did time he can take the mask with him because it was a more comfortable mask and he has not been able to get supplies readily from his [employer] company. Also to note the patient did have an elevated bicarb on arrival to the hospital suggesting the possibility of obesity hypoventilation syndrome. Will request a venous gas this time. Review of Systems Review of Systems: Constitutional : No Fever, No Chills ENT/Mouth : No sore throat, No Rhinorrhea, No Swallowing Difficulty Eyes: No Eye Pain, No Swelling, No Redness Cardiovascular : No Chest Pain, positive SOB, positive Orthopnea, no Edema Respiratory : No Cough, No Sputum, No Wheezing, positive dyspnea Gastrointestinal : No Nausea, No Vomiting, No Diarrhea, No abdominal Pain, No Hematochezia, No Melena Genitourinary : No Dysuria, No Urinary Frequency, No Hematuria Musculoskeletal : No joint pain, No Myalgias Skin : No Skin Lesions, No rash Neuro : No Weakness, No Numbness, No Dizziness, No Headache Psych : No Anxiety/Panic, No Depression Heme/Lymph: No Bruising, No Lymphadenopathy Endocrine : No Polyuria, No Polydipsia Yes all other systems are reviewed and are negative [facility], [facility] Past Medical History Medical History (Updated 04/14/22 @ 09:20 by Kevin Sahu MD) Asthma History of Hodgkin's lymphoma History of pulmonary embolism Hyperlipidemia Hypertension, essential, benign Moderate persistent asthma Morbid obesity with BMI of 60.0-69.9, adult BETSY (obstructive sleep apnea) Post covid-19 condition, unspecified (~08/2021) Surgical History Surgical History History of tonsillectomy Social History Social History Household Members: Spouse and Family Housing: House Do you presently have visiting nurse or other home services: No Patient Tobacco Use Status: Never used Tobacco Use of substances other than those prescribed or required for medical reasons: No Currently Displaying Signs/Symptoms of Drug Intoxication Withdrawal: No Have you been hit, kicked, punched, or otherwise hurt by someone within the past year? If so, by whom?: No Do you feel safe in your current relationship?: Yes Is there a partner from a previous relationship who is making you feel unsafe now?: No Are you made to feel afraid or neglected: No Advance Directives: No Advance Directives Information Provided: Yes Advance Directives on File: No Do you have thoughts of harming others: None Do you have a plan to hurt others: No Plan Recently lost weight without trying: No Eating poorly because of decreased appetite: Yes Nutrition Risks: No Nutritional Risk Poor oral hygiene: No Meds Allergies Allergy/AdvReac Type Severity Reaction Status Date / Time No Known Allergies Allergy Verified 02/03/22 13:53 Active Medications: Current Medications Acetaminophen (Acetaminophen 325 Mg Tablet) 650 mg PO Q6H PRN PRN Reason: Pain, Mild (Pain Scale 1-3) Albuterol Sulfate (Albuterol Sulfate (0.083%) 2.5 Mg/3 Ml Vial.Neb) 2.5 mg INHALE RQ4H WHILE AWAKE [place] Last Admin: 04/14/22 08:05 Dose: 2.5 mg Albuterol Sulfate (Albuterol Sulfate (0.083%) 2.5 Mg/3 Ml Vial.Neb) 2.5 mg INHA LE Q2H PRN PRN Reason: Shortness of Breath/Wheezing Fluticasone Propionate (Fluticasone Propionate Nasal 16 Gm [place]) 1 spray NOSTRIL-B DAILY [facility] [place] Last Admin: 04/13/22 17:11 Dose: 1 spray Fluticasone/Vilanterol (Fluticasone/Vilanterol 200/25 Blst.W.Dev) 1 puff INHALE RDAILY [facility] Last Admin: 04/14/22 08:08 Dose: 1 puff Hydrochlorothiazide (Hydrochlorothiazide 25 Mg Tablet) 25 mg PO DAILY [facility]; Protocol Melatonin (Melatonin 3 Mg Tablet) 6 mg PO BEDTIME PRN PRN Reason: Insomnia Methylprednisolone Sodium Succinate (Methylprednisolone Sod Succ 40 Mg/Ml Vial) 40 mg IVPUSH Q6H [facility] [place] Last Admin: 04/14/22 05:35 Dose: 40 mg Ondansetron HCl (Ondansetron Hcl 4 Mg/2 Ml Vial) 4 mg IVPUSH Q8H PRN PRN Reason: Nausea and Vomiting Sodium Chloride (0.9 % Sodium Chloride Flush 3 Ml Syringe) 3 ml IVFLUSH QSHIFT [facility] [place] Last Admin: 04/14/22 00:23 Dose: 3 ml Tiotropium [place] (Tiotropium [place] 18 Mcg Cap.W.Dev) 1 puff [facility]ALE [facility] Home Medications Medication Instructions Recorded Confirmed Last Taken Type lisinopril 30 mg tablet 30 mg PO DAILY 10/17/20 04/13/22 04/13/22 History fluticasone propionate 50 1 spray intranasal DAILY 04/13/22 04/13/22 04/13/22 History mcg/actuation nasal spray,suspension hydrochlorothiazide 25 mg tablet 25 mg PO DAILY 04/13/22 04/13/22 04/13/22 History Physical Exam Vital Signs: Vital Signs: Last Vital Signs Temp 96.9 F 04/14/22 07:18 Pulse 70 04/14/22 08:06 Resp 18 04/14/22 08:06 BP 166/73 H 04/14/22 07:18 Pulse Ox 94 04/14/22 07:18 O2 Del Method 04/14/22 07:18 BMI result Body Mass Index 60.2 Appearance: Alert.?Oriented to person, place and time. No acute distress.?Normal affect. Eyes: Pupils equal, round and reactive to light.? ENT: Pharynx normal.?? Neck: Normal inspection.? Neck supple.?? CVS: Heart sounds normal. Normal heart rate and rhythm.? Pulses normal.?? Respiratory: No respiratory distress.? Lung sounds clear at the apices, dimini shed at the bilateral bases Abdomen: Soft and non-tender. Normoactive bowel sounds. No pulsatile mass.?? Skin: Skin warm and dry.? Normal skin color.? Normal skin turgor.?+LE edema? Extremities: No lower extremity edema.? No calf ttp? Neuro: Moves all extremities spontaneously. Sensation intact bilaterally. CN II-XII intact. No focal neuro deficits. Ambulates with normal steady gait. Results Laboratory Findings CBC and BMP: 04/13/22 07:56 04/13/22 07:56 Abnormal lab findings: Abnormal Labs 04/13/22 04/13/22 07:56 07:56 RBC 4.01 L Hgb 13.4 L Hct 40.6 L MCV 101.2 H MCH 33.4 H Plt Count 140 L MPV 9.3 L Immature Gran % (Auto) 0.7 H Neut % (Auto) 83.2 H Lymph % (Auto) 6.5 L Lymph # (Auto) 0.5 L Abs Immat Gran (auto) 0.05 H Chloride 92 L Carbon Dioxide 34 H BUN 20 H D Total Bilirubin 1.4 H AST 45 H ALT 48 H Assessment and Plan (1) Moderate persistent asthma with (acute) exacerbation: Status: Acute (2) BETSY (obstructive sleep apnea): Status: Acute (3) Post covid-19 condition, unspecified: Status: Acute (4) Obesity hypoventilation syndrome: Status: Acute Plan Change to p.o. prednisone 40 mg x3 days then decrease by 10 mg every 3 days until complete Would have him start on Trelegy 200 upon discharge instead of the Breo Venous gas to assess Hypoventilation syndrome Will need to adjust his PAP therapy. I am requesting axis from his [employer] company, [employer] which I believe this will be helpful. Should also take the mask provided in the hospital as this is a more comfortable mask for him. Diuresis as tolerated. I do believe that fluoro some IV being a better agent and hydrochlorothiazide for the patient at this time Patient is okay to be discharged today. 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
[2022-04-14 09:34] LABS: Venous Blood Gas Refer to POC result
[2022-04-14 09:40] LABS: VBG Base Excess 9.9 mmol/L; VBG HCO3 35 mmol/L (22-26); VBG pCO2 51 mmHg; VBG pH 7.44 (7.32-7.43); VBG pO2 38 mmHg
--- NOTE | 2022-04-14 09:44 | PM.DS ---
DS: Providers Provider Date of Service: 04/14/22 Date of admission: 04/13/22 16:42 Primary care physician: Unknown Physician Consults: 04/14/22 08:50 Consult to Pulmonology Routine Consulting Provider: Kevin Sahu Reason for consultation: shortness of breath Has provider been notified: No DS: Diagnosis Discharge Diagnosis (1) Moderate persistent asthma with (acute) exacerbation: Status: Acute (2) BETSY (obstructive sleep apnea): Status: Acute (3) Post covid-19 condition, unspecified: Status: Acute (4) Obesity hypoventilation syndrome: Status: Acute DS: Summary Hospital Course Hospital Course: Chief Complaint: Shortness of breath 46 year old male with past medical history morbid obesity BMI of 60,moderate persistent asthma, hypertension, obstructive sleep apnea uses? CPAP, hyperlipidemia, Hodgkin's lymphoma in remission since 2010.? He comes in because of shortness of breath that is ongoing for sevral days, worst with exertion associated with no fever or chils, dry cough, of note he completed a course of corticosteroid for asthma just 2 days earlier for presumed exacerbation of asthma. CXR is fine, normal WBC, negative covid, normal BNP,. Hospital course: Patient was admitted overnight and treated with IV steroid, bronchodilators by Neb and improved by the next day. He was seen by Dr. Sahu from pulmonology and recommends Trelegy 200 rather Breo and to follow up with Pulmonary clinic in 1 to 2 weeks Time Spent with Patient Time attestation: Total time spent providing and/or coordinating discharge services: Discharge coordination time: Less than 30 minutes Quality: Safe Use of Opioids Does Pt have an Active Cancer Diagnosis on the Problem List?: No Quality: Stroke Does the patient have a stroke diagnosis?: No Physical Exam Vital Signs: Vital Signs: Last Vital Signs Temp 96.9 F 04/14/22 07:18 Pulse 70 04/14/22 08:06 Resp 18 04/14/22 08:06 BP 166/73 H 04/14/22 07:18 Pulse Ox 94 04/14/22 07:18 O2 Del Method 04/14/22 07:18 BMI result Body Mass Index 60.2 DS: Data Data Completed and Pending Labs on day of discharge: Laboratory Results - last 24 hr 04/13/22 04/14/22 11:19 09:32 D-Dimer High Sensitivty 153 VBG pH 7.44 H VBG pCO2 51 VBG pO2 38 VBG HCO3 35 H VBG O2 Saturation 57.0 VBG Base Excess 9.9 Discharge Plan Discharge Anticipated Discharge Date/Time: 04/14/22 09:36 Patient Disposition: Home Health Service Discharge Diagnosis: ASthama exacerbation Referrals: Physician,Unknown J [Primary Care Provider] - 1 Week Kevin Sahu MD [Physician] - 1 Week Discharge Medications: New Trelegy Ellipta 200-62.5-25 mcg blister with device 1 inh inhalation Q24H Qty: 60 0RF prednisone 20 mg tablet 40 mg PO DAILY 3 Days Qty: 6 0RF Continued albuterol sulfate 90 mcg/actuation HFA aerosol inhaler 2 puff PO Q4-6H PRN (Reason: for wheezing) Qty: 8.5 0RF fluticasone propionate 50 mcg/actuation [place],Suspension 1 spray INTRANASAL DAILY Rx Instructions: administer into each nostril hydrochlorothiazide 25 mg Tablet 25 mg PO DAILY lisinopril 30 mg tablet 30 mg PO DAILY Discontinued Breo Ellipta 200-25 mcg/dose blister with device 1 ea PO DAILY Qty: 60 0RF Discharge Orders: Discharge Order (Routine); Ordered 04/14/22 Ordered By: Evangelista Trotter Diet: Advance to usual diet Activity on Discharge: As tolerated Stand Alone Forms: Patient Portal Discharge page Care Plan Goals: full recovery Health Concerns: asthma exacerbation Plan of Treatment: take med as directed use cpap follow up with pulmonology clinic in 2 weeks Assessment: as calreen
[2022-04-14] MEDS: hydroCHLOROthiazide 25 MG TABLET PO (10:04)
--- NOTE | 2022-04-14 10:07 | MHC.CM.PN ---
PATIENT LIVES WITH HIS /HCP COPY ON FILE [facility]. PATIENT HAD DR PULIDO (WHO IS NO LONGER AT THIS PRACTICE) HE IS NOT SURE WHO IS HIS NEWLY ASSIGNED PCP. 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 NO OTHER DME, VNA, OR SERVICES. COVID VACCINATED X 2 AND DID HAVE COVID-19 IN AUGUST 2021. HE IS EXPECTED TO RETURN HOME TODAY - SELF CARE. TO TRANSPORT
== END 2022-04-14 17:15 | disposition home or self-care (01) ==
LOC: HO.ED 14:44 → HO.EDOVER 17:08 → HO.S3 17:27
PROVIDERS: Hospitalist; Nurse Practitioner Family; Admitting Provider Internal Medicine; Emergency Provider Student in an Organized Health Care Education/Training Program; PCP Internal Medicine; Visit Provider Internal Medicine
DX: J45.41 Moderate persistent asthma with (acute) exacerbation (principal); E66.2 Morbid (severe) obesity with alveolar hypoventilation; R06.02 Shortness of breath; U09.9 Post COVID-19 condition, unspecified; Z68.44 Body mass index [BMI] 60.0-69.9, adult; Z79.899 Other long term (current) drug therapy; Z20.822 Contact with and (suspected) exposure to COVID-19
CPT/HCPCS: 36415; 71045; 80053; 82803; 83880; 84484; 85025; 85379; 87635; 93005; 94640; 94644; 94660; 96374; 96375; 96376; 99218; 99284; 99285; J2920

== ENCOUNTER 2022-08-05 12:25 | Emergency (ER) | payer OTHER, SELFPAY ==
--- NOTE | ~2022-08-05 | XR_ITS ---
EXAMINATION: XR CHEST CLINICAL INFORMATION: Shortness of breath, recent COVID. COMPARISON: 04/13/2022 chest radiograph. TECHNIQUE: Frontal view of the chest was obtained. FINDINGS: No significant abnormality is noted involving the heart, lungs, mediastinum, bony thorax or soft tissues. XR/XR chest 1V IMPRESSION: No acute cardiopulmonary process.
[2022-08-05 13:55] VITALS: BP 172/50; PULSE 70; RESP 20; TEMP 36.3; O2SAT 96; BMI 57.4
--- NOTE | 2022-08-05 13:57 | ECG_ITS ---
Test Reason : DIFF BREATHING Blood Pressure : / mmHG Vent. Rate : 087 BPM Atrial Rate : 087 BPM P-R Int : 162 ms QRS Dur : 100 ms QT Int : 412 ms P-R-T Axes : 058 052 064 degrees QTc Int : 495 ms Normal sinus rhythm ST & T wave abnormality, consider anterior ischemia Prolonged QT Intra-ventricular conduction delay Abnormal ECG When compared with ECG of 13-APR-2022 12:57, No significant change was found Referred By: Jayson Olivo Electronically Signed By:CHALO YA MD
--- NOTE | 2022-08-05 14:00 | ED_ITS ---
HPI - General Adult General Chief complaint: Dyspnea Stated complaint: Diff Breathing R/O Pneumonia Related Data Home Medications Medication Instructions Recorded Confirmed fluticasone propionate 50 1 spray intranasal DAILY 04/13/22 04/13/22 mcg/actuation nasal spray,suspension Previous Rx's Medication Instructions Recorded albuterol sulfate 90 mcg/actuation 2 puff PO Q4-6H PRN for wheezing 11/11/21 aerosol inhaler #8.5 grams Breo Ellipta 200 mcg-25 mcg/dose 1 ea PO DAILY #60 ea 04/21/22 powder for inhalation (fluticasone furoate-vilanterol) ipratropium 0.5 mg-albuterol 3 mg 3 ml inhalation Q4-6H PRN wheezing 08/03/22 (2.5 mg base)/3 mL nebulization 30 days #270 mL soln prednisone 20 mg tablet 40 mg PO DAILY 5 days #10 tabs 08/03/22 hydrochlorothiazide 25 mg tablet 25 mg PO DAILY 90 days #90 tabs 08/07/22 lisinopril 30 mg tablet 30 mg PO DAILY 90 days #90 tabs 08/07/22 Allergies Allergy/AdvReac Type Severity Reaction Status Date / Time No Known Allergies Allergy Verified 08/05/22 13:58 [facility] Past Medical History Medical History (Updated 08/10/22 @ 15:27 by TOMMY Hines) Asthma History of Hodgkin's lymphoma History of pulmonary embolism Hyperlipidemia Hypertension, essential, benign Moderate persistent asthma Moderate persistent asthma with (acute) exacerbation Morbid obesity with BMI of 60.0-69.9, adult Obesity hypoventilation syndrome BETSY (obstructive sleep apnea) Post covid-19 condition, unspecified (~08/2021) Surgical History History of tonsillectomy Social History Social History Household Members: Spouse and Family Housing: House Do you presently have visiting nurse or other home services: No Patient Tobacco Use Status: Never used Tobacco Advance Directives: Yes Advance Directives Information Provided: Yes Advance Directives on File: No service: No Current occupational status: employed Physical Exam ED Vital Signs: Vital Signs - 24 hr 08/05/22 13:55 Temperature 97.3 F Pulse Rate 70 Respiratory Rate 20 Blood Pressure 172/50 H Pulse Oximetry 96 Oxygen Delivery Method Room Air BMI result Body Mass Index 57.4 Course Course Course Narrative: JOSEPH. Covid positive with chest pain, shortness of breath, and shortness of breath when lying down flat. EKG, labs, and chest x-ray ordered. Medical Decision Making Lab Data Result diagrams: 08/05/22 14:28 08/05/22 14: Labs: Lab Results 08/05/22 08/05/22 08/05/22 Range/Units 14:28 14:28 14:28 WBC 10.5 (4.8-10.8) X10*3/uL RBC 4.12 L (4.60-5.80) X10*6/uL Hgb 13.7 L (14.0-18.0) g/dl Hct 41.6 L (42.0-52.0) % MCV 101.0 H (80.0-98.0) fL MCH 33.3 H (27.0-33.0) pg MCHC 32.9 (31.0-36.0) g/dl RDW 14.6 (11.0-16.0) % Plt Count 188 D (160-400) X10*3/uL MPV 9.6 (9.4-12.4) fL Immature Gran % (Auto) 0.3 (0.0-0.4) % Neut % (Auto) 93.4 H (45-73) % Lymph % (Auto) 3.1 L (20-40) % [place] % (Auto) 3.1 (2-11) % Eos % (Auto) 0.0 (0-4) % Baso % (Auto) 0.1 (0-2) % Lymph # (Auto) 0.3 L (1.2-4.9) X10*3/uL [place] # (Auto) 0.3 (0.1-1.2) X10*3/uL Eos # (Auto) 0.0 (0.0-0.4) X10*3/uL Baso # (Auto) 0.0 (0.0-0.2) X10*3/uL Abs Immat Gran (auto) 0.03 (0.00-0.03) X10*3/uL Absolute Neuts (auto) 9.8 H (2.0-8.3) x10*3/uL Absolute Nucleated RBC 0.000 (0.0-0.012) X10*3/uL Nucleated RBC % (auto) 0.0 (0.0-0.2) /100WBC Smear Tech's Comments VERIFIED PT 13.2 H (10.0-13.1) SEC INR 1.1 (0.9-1.1) APTT 42.0 H (26.0-36.4) SEC Sodium 139 (135-145) mmol/L Potassium 4.1 (3.3-5.1) mmol/L Chloride 97 (96-108) mmol/L Carbon Dioxide 26 (22-29) mmol/L Anion Gap 20 (12-20) BUN 15 (9-16) mg/dL Creatinine 0.75 (0.5-1.4) mg/dL Estim Creat Clear Calc 200.4 Estimated GFR > 60 Random Glucose 123 H (60-115) mg/dL Calcium 8.9 (8.4-10.2) mg/dL Total Bilirubin 0.9 (0.0-1.0) mg/dL AST 40 H (5-37) U/L ALT 50 H (0-40) U/L Alkaline Phosphatase 105 (39-117) U/L Troponin I High Sens (<3.5-35.0) ng/L B-Natriuretic Peptide (<100) pg/mL Total Protein 7.6 (6.5-8.0) g/dL Albumin 4.4 (3.5-5.0) g/dL 08/05/22 08/05/22 Range/Units 14:28 14:28 WBC (4.8-10.8) X10*3/uL RBC (4.60-5.80) X10*6/uL Hgb (14.0-18.0) g/dl Hct (42.0-52.0) % MCV (80.0-98.0) fL MCH (27.0-33.0) pg MCHC (31.0-36.0) g/dl RDW (11.0-16.0) % Plt Count (160-400) X10*3/uL MPV (9.4-12.4) fL Immature Gran % (Auto) (0.0-0.4) % Neut % (Auto) (45-73) % Lymph % (Auto) (20-40) % [place] % (Auto) (2-11) % Eos % (Auto) (0-4) % Baso % (Auto) (0-2) % Lymph # (Auto) (1.2-4.9) X10*3/uL [place] # (Auto) (0.1-1.2) X10*3/uL Eos # (Auto) (0.0-0.4) X10*3/uL Baso # (Auto) (0.0-0.2) X10*3/uL Abs Immat Gran (auto) (0.00-0.03) X10*3/uL Absolute Neuts (auto) (2.0-8.3) x10*3/uL Absolute Nucleated RBC (0.0-0.012) X10*3/uL Nucleated RBC % (auto) (0.0-0.2) /100WBC Smear Tech's Comments PT (10.0-13.1) SEC INR (0.9-1.1) APTT (26.0-36.4) SEC Sodium (135-145) mmol/L Potassium (3.3-5.1) mmol/L Chloride (96-108) mmol/L Carbon Dioxide (22-29) mmol/L Anion Gap (12-20) BUN (9-16) mg/dL Creatinine (0.5-1.4) mg/dL Estim Creat Clear Calc Estimated GFR Random Glucose (60-115) mg/dL Calcium (8.4-10.2) mg/dL Total Bilirubin (0.0-1.0) mg/dL AST (5-37) U/L ALT (0-40) U/L Alkaline Phosphatase (39-117) U/L Troponin I High Sens < 3.5 (<3.5-35.0) ng/L B-Natriuretic Peptide 160 H (<100) pg/mL Total Protein (6.5-8.0) g/dL Albumin (3.5-5.0) g/dL Discharge Plan Discharge Clinical Impression: Chest pain Patient Disposition: Left Without Being Seen Interventions: LWBS Worksheet Last Done: 08/05/22 20:51 Discharge Date/Time: 08/05/22 20:51
[2022-08-05 14:38] LABS: Basophils Percent Auto 0.1 % (0-2); Hematocrit 41.6 % (42.0-52.0); Hemoglobin 13.7 g/dl (14.0-18.0); Imm Gran Abs Auto 0.03 X10*3/uL (0.00-0.03); Imm Gran Pct Auto 0.3 % (0.0-0.4); Lymphocytes Absolute Auto 0.3 X10*3/uL (1.2-4.9); Lymphocytes Percent Auto 3.1 % (20-40); MANUAL DIFF FLAG SCAN; Mean Corpuscular HGB Conc 32.9 g/dl (31.0-36.0); Mean Corpuscular Hemoglobin 33.3 pg (27.0-33.0); Mean Platelet Volume 9.6 fL (9.4-12.4); Monocytes Absolute Auto 0.3 X10*3/uL (0.1-1.2); Monocytes Percent Auto 3.1 % (2-11); Neutrophils Absolute Auto 9.8 x10*3/uL (2.0-8.3); Neutrophils Percent Auto 93.4 % (45-73); Platelet Count 188 X10*3/uL (160-400); Red Blood Count 4.12 X10*6/uL (4.60-5.80); Red Cell Distribution Width 14.6 % (11.0-16.0); SCAN SMEAR FLAG 1; White Blood Count 10.5 X10*3/uL (4.8-10.8)
[2022-08-05 14:48] LABS: INTERNATIONAL NORM RATIO 1.1 (0.9-1.1); Prothrombin Time 13.2 SEC (10.0-13.1)
[2022-08-05 14:56] LABS: SLIDE REVIEW VERIFIED
[2022-08-05 14:57] LABS: Alanine Aminotransferase 50 U/L (0-40); Albumin Level 4.4 g/dL (3.5-5.0); Alkaline Phosphatase 105 U/L (39-117); Anion Gap 20 (12-20); Aspartate Amino Transferase 40 U/L (5-37); Bilirubin Total 0.9 mg/dL (0.0-1.0); Blood Urea Nitrogen 15 mg/dL (9-16); Calcium 8.9 mg/dL (8.4-10.2); Carbon Dioxide 26 mmol/L (22-29); Chloride 97 mmol/L (96-108); Creatinine Clr Calc Pharmacy 200.4; Estimated Glomerular Filt Rate > 60; Glucose Random 123 mg/dL (60-115); Potassium 4.1 mmol/L (3.3-5.1); Sodium 139 mmol/L (135-145); Total Protein 7.6 g/dL (6.5-8.0)
[2022-08-05 15:04] LABS: B Type Natriuretic Peptide 160 pg/mL (<100); Troponin-I High Sensitivity < 3.5 ng/L (<3.5-35.0)
== END 2022-08-05 20:51 | disposition left against medical advice (07) ==
PROVIDERS: Physician Assistant; Emergency Provider Emergency Medicine; PCP Family Medicine
DX: R06.02 Shortness of breath (principal); Z79.899 Other long term (current) drug therapy; Z20.822 Contact with and (suspected) exposure to COVID-19; Z86.16 Personal history of COVID-19
CPT/HCPCS: 36415; 71045; 80053; 83880; 84484; 85025; 85610; 85730; 93005; 99283

== ENCOUNTER → 2022-10-12 14:12 | Outpatient (BNVA) | payer OTHER, SELFPAY | PROVIDERS: PCP Family Medicine; Referring Provider Family Medicine; Visit Provider Internal Medicine | DX: Z13.89 Encounter for screening for other disorder (principal) ==

== ENCOUNTER → 2022-10-21 10:41 | Outpatient (BNVA) | payer OTHER, SELFPAY | PROVIDERS: PCP Family Medicine; Visit Provider Internal Medicine Pulmonary Disease | DX: Z13.89 Encounter for screening for other disorder (principal) ==

== ENCOUNTER 2022-12-29 07:56 | Emergency (ER) | payer OTHER, SELFPAY ==
--- NOTE | 2022-12-29 | ECG_ITS ---
Test Reason : sob Blood Pressure : / mmHG Vent. Rate : 072 BPM Atrial Rate : 072 BPM P-R Int : 176 ms QRS Dur : 102 ms QT Int : 426 ms P-R-T Axes : 044 047 017 degrees QTc Int : 466 ms Sinus rhythm with marked sinus arrhythmia with occasional Premature ventricular complexes T wave abnormality, consider anterior ischemia Prolonged QT Abnormal ECG When compared with ECG of 05-AUG-2022 14:19, Premature ventricular complexes are now Present Referred By: Generic ED Physician Electronically Signed By:Justin Aguayo
--- NOTE | ~2022-12-29 | XR_ITS ---
EXAMINATION: XR CHEST CLINICAL INFORMATION: Shortness of breath. COMPARISON: 08/05/2022 TECHNIQUE: 2 views of the chest were obtained. FINDINGS: Lungs are well expanded. No acute pulmonary findings. No airspace disease, pleural effusion or pneumothorax. There is stable appearance of the cardiomediastinal silhouette. There appears to be chronic mild prominence of fat within the mediastinum. Trachea is midline in position. No acute skeletal abnormality. XR/XR chest 2V IMPRESSION: No evidence of pneumonia or congestive heart failure. No acute pulmonary disease compared to 08/05/2022.
[2022-12-29 08:05] VITALS: BP 147/74; PULSE 83; RESP 28; TEMP 36.8; O2SAT 96; BMI 57.4
--- NOTE | 2022-12-29 08:46 | ED.GENADULT ---
HPI - General Adult General Chief complaint: Dyspnea Stated complaint: Diff breathing Time Seen by Provider: 12/29/22 08:46 Source: patient Mode of arrival: ambulatory Limitations: no limitations History of Present Illness HPI narrative: Patient is a 47 year old assigned male at with a history of asthma presenting to the emergency department today with increased shortness of breath. Patient states that over the last couple of days he has had increasing shortness of breath. Patient denies any dizziness, lightheadedness, abdominal pain, nausea, vomiting, fever, chills, blurry vision, double vision, loss of vision, chest pain, back pain, night sweats, pain with urination, increased urinary frequency, increased urinary urgency, blood in his urine or stool, syncope or a near syncopal episode, recent trauma or falls, bowel incontinence, bladder incontinence, bowel retention, bladder retention, or any other complaints at this time. Onset (ago): day(s) Severity: mild Severity scale (1-10): 2 Relieving factors: none Exacerbating factors: none Associated symptoms: shortness of breath Treatments prior to arrival: none Related Data Home Medications Medication Instructions Recorded Confirmed fluticasone propionate 50 1 spray intranasal DAILY 04/13/22 10/12/22 mcg/actuation nasal spray,suspension Previous Rx's Medication Instructions Recorded albuterol sulfate 90 mcg/actuation 2 puff PO Q4-6H PRN for wheezing 11/11/21 aerosol inhaler #8.5 grams ipratropium 0.5 mg-albuterol 3 mg 3 ml inhalation Q4-6H PRN wheezing 08/03/22 (2.5 mg base)/3 mL nebulization 30 days #270 mL soln hydrochlorothiazide 25 mg tablet 25 mg PO DAILY 90 days #90 tabs 08/07/22 lisinopril 30 mg tablet 30 mg PO DAILY 90 days #90 tabs 08/07/22 fluticasone fur. 200 mcg-umeclid 1 ea inhalation DAILY 30 days #1 ea 12/14/22 62.5 mcg-vilant 25 mcg inhalat.powder (Trelegy Ellipta) prednisone 20 mg tablet 20 mg PO DAILY 7 days #7 tabs 12/29/22 Allergies Allergy/AdvReac Type Severity Reaction Status Date / Time No Known Allergies Allergy Verified 10/21/22 10:46 Review of Systems Constitutional: Constitutional: Reports no additional constitutional complaints, Denies chills, Denies fever(s) and Denies night sweats Eyes: Eyes: Reports no additional eye complaints, Denies blurry vision, Denies change in vision, Denies diplopia, Denies eye discharge, Denies loss of vision and Denies eye pain ENT: Denies dizziness Cardiovascular: Cardiovascular: Reports no additional cardiovascular complaints, Denies chest pain, Denies lightheadedness, Denies Loss of Consciousness and Reports dyspnea Respiratory: Respiratory: Reports no additional respiratory complaints and Reports dyspnea Gastrointestinal: Gastrointestinal: Reports no additional gastrointestinal complaints, Denies abdominal pain, Denies melena, Denies hematochezia, Denies change in bowel habits and Denies change in stool character Genitourinary: Genitourinary: Reports no additional male genitourinary complaints, Denies hematuria, Denies oliguria, Denies difficulty urinating, Denies dysuria, Denies urinary frequency, Denies urinary hesitancy, Denies urinary incontinence and Denies urinary urgency Musculoskeletal: Musculoskeletal: Reports no additional musculoskeletal complaints, Denies numbness and Denies tingling Neurologic: Denies dizziness, Denies loss of vision, Denies numbness and Denies tingling Psychiatric: Psychiatric: Reports no additional psychiatric complaints Endocrine: Endocrine: Reports no additional endocrine complaints Hematologic/Lymphatic: Hematologic/Lymphatic: Reports no additional hematologic/lymphatic complaints Allergic/Immunologic: Allergic/Immunologic: Reports no additional allergic/immunologic complaints FORMERLY [facility] Past Medical History Attestation statement: The following information was validated with the patient. Source: old records reviewed and nursing notes reviewed Medical History Asthma History of Hodgkin's lymphoma History of pulmonary embolism Hyperlipidemia Hypertension, essential, benign Moderate persistent asthma Moderate persistent asthma with (acute) exacerbation Morbid obesity with BMI of 60.0-69.9, adult Obesity hypoventilation syndrome BETSY (obstructive sleep apnea) Post covid-19 condition, unspecified (~08/2021) Surgical History History of tonsillectomy Family History Family History Mother Hypertension Father Hypertension Diabetes Social History Social History Household Members: Spouse and Family Housing: House Do you presently have visiting nurse or other home services: No Alcohol intake: current Alcohol intake frequency: a few times a week Alcohol type: other Patient Tobacco Use Status: Former Tobacco user Quit Date: 2021 Smoked in Last 30 Days: No Advance Directives: Yes Advance Directives Information Provided: No Advance Directives on File: No service: No Current occupational status: employed Physical Exam ED Vital Signs: Vital Signs - 24 hr 12/29/22 08:05 12/29/22 08:48 12/29/22 10:00 Temperature 98.3 F 98.2 F Pulse Rate 83 67 77 Respiratory Rate 28 H 15 20 Blood Pressure 147/74 H 137/73 148/70 H Pulse Oximetry 96 96 93 Oxygen Delivery Method Room Air Room Air Room Air 12/29/22 10:21 Temperature Pulse Rate 75 Respiratory Rate 18 Blood Pressure Pulse Oximetry Oxygen Delivery Method BMI result Body Mass Index 57.4 Const General: cooperative, no acute distress, alert and awake Nutritional Appearance: well nourished Orientation/consciousness: patient oriented x3 Limitations: no limitations HENMT Head: Yes normal to inspection and Yes atraumatic Ears: hearing grossly normal bilaterally and external ears normal General nose exam: Normal external nose present, no nasal discharge noted and no epistaxis Face and sinus: Yes normal facial exam, No abrasion and No laceration Mouth: Normal oral and palatal mucosa present, no drooling and no muffled voice Eyes General: appearance normal, both eyes and all related structures Periorbital: periorbital findings normal Eyelids: Yes eyelids normal Conjunctivae: conjunctivae normal Pupils: Equal, round and reactive pupils present EOM: EOMs intact bilaterally Neck Neck: Yes normal visual inspection, Yes full ROM and Yes no lymphadenopathy Chest Chest palpation & inspection: normal inspection of the chest Resp Effort & Inspection: normal respiratory effort and able to speak in complete sentences Auscultation: wheezes throughout Cardio Rate: regular rate Rhythm: regular rhythm GI Inspection: Yes normal to inspection Palpation (GI): Soft to palpation, not firm, nontender, no guarding and not rigid Neuro General: patient oriented x3 and moves all extremities Cranial nerves: Yes Equal, round and reactive pupils present Cognition (Neuro): normal cognition Motor exam (neuro): 5/5 motor strength present throughout Sensory Exam: Normal double simultaneous stimulation for sensation Coordination: [id number] test normal Extrem General: Yes normal to inspection, Yes full ROM and Yes capillary refill normal Psych Appearance: grossly normal Mental Status: mental status grossly normal Affect: normal affect Attitude: cooperative Thought process: Normal thought process present Thought content: Normal thought content present Insight: Good insight present (Psych) Medications Administered Discontinued Medications Generic Name Dose Route Start Last Admin Trade Name Balbir PRN Reason Stop Dose Admin Albuterol Sulfate 10 mg 12/29/22 08:49 12/29/22 10:20 Albuterol Sulfate (0.083%) 2.5 Mg/3 Ml Vial.Neb INHALE 12/29/22 08:50 10 mg ONCE ONE Administration Magnesium Sulfate 2 gm in 50 mls @ 25 mls/hr 12/29/22 09:50 12/29/22 10:09 Magnesium Sulfate/H2o IV 12/29/22 11:49 25 mls/hr ONCE ONE Administration Methylprednisolone Sodium Succinate 60 mg 12/29/22 08:49 12/29/22 09:12 Methylprednisolone Sod Succ 125 Mg/2 Ml Vial IVPUSH 12/29/22 08:50 60 mg ONCE ONE Administration Medical Decision Making Medical Decision Making MDM Narrative: Patient is a 47 year old assigned male at with a history of asthma presenting to the emergency department today with shortness of breath. Patient's physical exam showed diffuse wheezing but was otherwise unremarkable. Patient's blood work showed a decreased mag of 1.4. Patient's EKG was unremarkable. Patient's chest x-ray showed no acute process. I explained my physical exam findings as well as all test results to the patient. I answered all questions asked by the patient. Patient received IV solu-medrol and IV mag which he stated helped his symptoms significantly. I stressed the importance of the patient taking his medication as prescribed. I stressed the importance of the patient following up with his primary care provider. I stressed the importance of the patient returning to the emergency department immediately if his symptoms were to worsen or if he were to develop any dizziness, shortness of breath, difficulty breathing, chest pain, blurry vision, loss of vision, nausea, vomiting, abdominal pain, fever, chills, back pain, or any other complaints. Patient verbalized agreement and understanding with this treatment plan and discharge. Differential Diagnosis Differential Diagnoses: The differential diagnosis associated with the presentation includes asthma exacerbation, hypomag Lab Data MDM Lab Attestation statement: I reviewed the patient's lab results. 12/29/22 09:03 12/29/22 09:03 Labs: Lab Results 12/29/22 12/29/22 12/29/22 Range/Units 06:18 08:57 09:03 WBC 7.5 (4.8-10.8) X10*3/uL RBC 4.10 L (4.60-5.80) X10*6/uL Hgb 13.6 L (14.0-18.0) g/dl Hct 40.5 L (42.0-52.0) % MCV 98.8 H (80.0-98.0) fL MCH 33.2 H (27.0-33.0) pg MCHC 33.6 (31.0-36.0) g/dl RDW 14.3 (11.0-16.0) % Plt Count 140 L D (160-400) X10*3/uL MPV 9.6 (9.4-12.4) fL Immature Gran % (Auto) 0.3 (0.0-0.4) % Neut % (Auto) 86.9 H (45-73) % Lymph % (Auto) 4.8 L (20-40) % [place] % (Auto) 6.5 (2-11) % Eos % (Auto) 1.1 (0-4) % Baso % (Auto) 0.4 (0-2) % Lymph # (Auto) 0.4 L (1.2-4.9) X10*3/uL [place] # (Auto) 0.5 (0.1-1.2) X10*3/uL Eos # (Auto) 0.1 (0.0-0.4) X10*3/uL Baso # (Auto) 0.0 (0.0-0.2) X10*3/uL Abs Immat Gran (auto) 0.02 (0.00-0.03) X10*3/uL Absolute Neuts (auto) 6.5 (2.0-8.3) x10*3/uL Absolute Nucleated RBC 0.000 (0.0-0.012) X10*3/uL Nucleated RBC % (auto) 0.0 (0.0-0.2) /100WBC Sodium (135-145) mmol/L Potassium (3.3-5.1) mmol/L Chloride (96-108) mmol/L Carbon Dioxide (22-29) mmol/L Anion Gap (12-20) BUN (9-16) mg/dL Creatinine (0.5-1.4) mg/dL Estim Creat Clear Calc Estimated GFR Random Glucose (60-115) mg/dL Calcium (8.4-10.2) mg/dL Magnesium (1.6-2.6) mg/dL Total Bilirubin (0.0-1.0) mg/dL AST (5-37) U/L ALT (0-40) U/L Alkaline Phosphatase (39-117) U/L Troponin I High Sens (<3.5-35.0) ng/L B-Natriuretic Peptide 53 (<100) pg/mL Total Protein (6.5-8.0) g/dL Albumin (3.5-5.0) g/dL COVID-19 (RENEA) Negative (Negative) COVID-19 Clin Com See Note 12/29/22 12/29/22 Range/Units 09:03 09:03 WBC (4.8-10.8) X10*3/uL RBC (4.60-5.80) X10*6/uL Hgb (14.0-18.0) g/dl Hct (42.0-52.0) % MCV (80.0-98.0) fL MCH (27.0-33.0) pg MCHC (31.0-36.0) g/dl RDW (11.0-16.0) % Plt Count (160-400) X10*3/uL MPV (9.4-12.4) fL Immature Gran % (Auto) (0.0-0.4) % Neut % (Auto) (45-73) % Lymph % (Auto) (20-40) % [place]gs % (Auto) (2-11) % Eos % (Auto) (0-4) % Baso % (Auto) (0-2) % Lymph # (Auto) (1.2-4.9) X10*3/uL [place] # (Auto) (0.1-1.2) X10*3/uL Eos # (Auto) (0.0-0.4) X10*3/uL Baso # (Auto) (0.0-0.2) X10*3/uL Abs Immat Gran (auto) (0.00-0.03) X10*3/uL Absolute Neuts (auto) (2.0-8.3) x10*3/uL Absolute Nucleated RBC (0.0-0.012) X10*3/uL Nucleated RBC % (auto) (0.0-0.2) /100WBC Sodium 134 L (135-145) mmol/L Potassium 3.9 (3.3-5.1) mmol/L Chloride 94 L (96-108) mmol/L Carbon Dioxide 29 (22-29) mmol/L Anion Gap 15 (12-20) BUN 10 (9-16) mg/dL Creatinine 0.77 (0.5-1.4) mg/dL Estim Creat Clear Calc 195.2 Estimated GFR > 60 Random Glucose 121 H (60-115) mg/dL Calcium 8.8 (8.4-10.2) mg/dL Magnesium 1.4 L* (1.6-2.6) mg/dL Total Bilirubin 1.2 H (0.0-1.0) mg/dL AST 28 (5-37) U/L ALT 28 (0-40) U/L Alkaline Phosphatase 97 (39-117) U/L Troponin I High Sens 3.0 (<3.5-35.0) ng/L B-Natriuretic Peptide (<100) pg/mL Total Protein 6.6 (6.5-8.0) g/dL Albumin 4.0 (3.5-5.0) g/dL COVID-19 (RENEA) (Negative) COVID-19 Clin Com Independent Interpretation I performed an independent interpretation of an: EKG Interpretation: Vent. Rate: 072 BPM ? ? Atrial Rate: 072 BPM P-R Int: 176 ms? QRS Dur: 102 ms QT Int: 426 ms ? ? ? P-R-T Axes: 044 047 017 degrees QTc Int: 466 ms ? Sinus rhythm with marked sinus arrhythmia with occasional Premature ventricular complexes T wave abnormality, consider anterior ischemia Prolonged QT Abnormal ECG When compared with ECG of 05-AUG-2022 14:19, Premature ventricular complexes are now Present DD/ [id number] Radiology Impression Radiologist Impression: My interpretation is in agreement with the radiologist's impression of this imaging study. EXAMINATION: XR CHEST CLINICAL INFORMATION: Shortness of breath. COMPARISON: 08/05/2022 TECHNIQUE: 2 views of the chest were obtained. FINDINGS: Lungs are well expanded. No acute pulmonary findings. No airspace disease, pleural effusion or pneumothorax. There is stable appearance of the cardiomediastinal silhouette. There appears to be chronic mild prominence of fat within the mediastinum. Trachea is midline in position. No acute skeletal abnormality. XR/XR chest 2V IMPRESSION: No evidence of pneumonia or congestive heart failure. No acute pulmonary disease compared to 08/05/2022. Dictated By: Julius Ervin MD Signed By: Electronically signed by Julius Ervin MD 12/29/22 0939 Discharge Plan Discharge Clinical Impression: Hypomagnesemia, Acute asthma Patient Disposition: Home, Self-Care Instructions: Asthma (DC), Hypomagnesemia (ED) Additional Instructions: Follow up with your primary care provider. Return to the emergency department immediately if your symptoms worsen or if you develop any dizziness, shortness of breath, difficulty breathing, chest pain, blurry vision, loss of vision, nausea, vomiting, abdominal pain, fever, chills, back pain, or any other complaints. Prescriptions: New prednisone 20 mg tablet 20 mg PO DAILY 7 Days Qty: 7 0RF No Action albuterol sulfate 90 mcg/actuation HFA aerosol inhaler 2 puff PO Q4-6H PRN (Reason: for wheezing) Qty: 8.5 0RF ipratropium-albuterol 0.5 mg-3 mg(2.5 mg base)/3 mL solution for nebulization 3 ml inhalation Q4-6H PRN (Reason: wheezing) 30 Days Qty: 270 6RF hydrochlorothiazide 25 mg tablet 25 mg PO DAILY 90 Days Qty: 90 3RF lisinopril 30 mg tablet 30 mg PO DAILY 90 Days Qty: 90 3RF Trelegy Ellipta 200-62.5-25 mcg blister with device 1 ea inhalation DAILY 30 Days Qty: 1 6RF fluticasone propionate 50 mcg/actuation [place],Suspension 1 spray INTRANASAL DAILY Rx Instructions: administer into each nostril Referrals: [facility] [Provider Group] (Call to establish and follow up with a winch stripper.) Erich Shields MD [Primary Care Provider] - Stand Alone Forms: Work/School Release Interventions: ED Discharge Assessment Last Done: 12/29/22 12:06 Discharge Date/Time: 12/29/22 12:06 Print Language: Ukrainian
--- NOTE | 2022-12-29 08:46 | PC.NURSE ---
This junior copywriter went in to check on patient who visually looks like he is breathing better. however patient alerted this nurse that he now feels like he has something sitting on his chest, and is feeling a lot of pressure. EKG ordered, pt placed on tele, NSR noted.
[2022-12-29 08:48] VITALS: BP 137/73; PULSE 67; RESP 15; O2SAT 96
[2022-12-29] MEDS: methylPREDNISolone Sod Succ 125 MG/2 ML VIAL 60 MG IVPUSH (09:12)
[2022-12-29 09:18] LABS: MANUAL DIFF FLAG NO
[2022-12-29 09:27] LABS: Basophils Percent Auto 0.4 % (0-2); Eosinophils Absolute Auto 0.1 X10*3/uL (0.0-0.4); Eosinophils Percent Auto 1.1 % (0-4); Hematocrit 40.5 % (42.0-52.0); Hemoglobin 13.6 g/dl (14.0-18.0); Imm Gran Abs Auto 0.02 X10*3/uL (0.00-0.03); Imm Gran Pct Auto 0.3 % (0.0-0.4); Lymphocytes Absolute Auto 0.4 X10*3/uL (1.2-4.9); Lymphocytes Percent Auto 4.8 % (20-40); Mean Corpuscular HGB Conc 33.6 g/dl (31.0-36.0); Mean Corpuscular Hemoglobin 33.2 pg (27.0-33.0); Mean Corpuscular Volume 98.8 fL (80.0-98.0); Mean Platelet Volume 9.6 fL (9.4-12.4); Monocytes Absolute Auto 0.5 X10*3/uL (0.1-1.2); Monocytes Percent Auto 6.5 % (2-11); Neutrophils Absolute Auto 6.5 x10*3/uL (2.0-8.3); Neutrophils Percent Auto 86.9 % (45-73); Platelet Count 140 X10*3/uL (160-400); Red Cell Distribution Width 14.3 % (11.0-16.0); White Blood Count 7.5 X10*3/uL (4.8-10.8)
[2022-12-29 09:44] LABS: B Type Natriuretic Peptide 53 pg/mL (<100)
[2022-12-29 09:46] LABS: COVID-19 Test Negative (Negative); IDNOW Serial# BCCEAD1C
[2022-12-29 09:49] LABS: Alanine Aminotransferase 28 U/L (0-40); Alkaline Phosphatase 97 U/L (39-117); Anion Gap 15 (12-20); Aspartate Amino Transferase 28 U/L (5-37); Bilirubin Total 1.2 mg/dL (0.0-1.0); Blood Urea Nitrogen 10 mg/dL (9-16); Calcium 8.8 mg/dL (8.4-10.2); Carbon Dioxide 29 mmol/L (22-29); Chloride 94 mmol/L (96-108); Creatinine Clr Calc Pharmacy 195.2; Estimated Glomerular Filt Rate > 60; Glucose Random 121 mg/dL (60-115); Magnesium 1.4 mg/dL (1.6-2.6); Potassium 3.9 mmol/L (3.3-5.1); Sodium 134 mmol/L (135-145); Total Protein 6.6 g/dL (6.5-8.0)
--- NOTE | 2022-12-29 09:55 | PC.NURSE ---
CRITICAL MAGNESIUM 1.4. RESULT DOCUMENTED IN APPROPRIATE PLACE.
[2022-12-29 10:00] VITALS: BP 148/70; PULSE 77; RESP 20; TEMP 36.8; O2SAT 93
[2022-12-29] MEDS: Magnesium Sulfate/H2O 2 GM/50 ML PIGGYBACK IV (10:09)
[2022-12-29] MEDS: Albuterol Sulfate (0.083%) 2.5 MG/3 ML VIAL.NEB 10 MG INHALE (10:20)
[2022-12-29 10:21] VITALS: PULSE 75; RESP 18; O2SAT 94
== END 2022-12-29 12:06 | disposition home or self-care (01) ==
PROVIDERS: Physician Assistant Medical; Emergency Provider Emergency Medicine Emergency Medical Services; PCP Family Medicine
DX: J45.909 Unspecified asthma, uncomplicated (principal); E83.42 Hypomagnesemia; R06.02 Shortness of breath; Z20.822 Contact with and (suspected) exposure to COVID-19; Z79.899 Other long term (current) drug therapy; Z87.891 Personal history of nicotine dependence
CPT/HCPCS: 36415; 71046; 80053; 83735; 83880; 84484; 85025; 87635; 93005; 94640; 96374; 96375; 99284; 99285; J2930; J3475

== ENCOUNTER 2023-04-02 12:04 | Outpatient (REF) | payer OTHER, SELFPAY ==
[2023-04-02 14:27] LABS: Alanine Aminotransferase 44 U/L (0-40); Albumin Level 4.5 g/dL (3.5-5.0); Alkaline Phosphatase 99 U/L (39-117); Anion Gap 17 (12-20); Aspartate Amino Transferase 39 U/L (5-37); Bilirubin Total 1.9 mg/dL (0.0-1.0); Blood Urea Nitrogen 15 mg/dL (9-16); Calcium 10.7 mg/dL (8.4-10.2); Carbon Dioxide 26 mmol/L (22-29); Chloride 96 mmol/L (96-108); Cholesterol 250 mg/dL; Estimated Glomerular Filt Rate > 60; Glucose Fasting 98 mg/dL (60-99); HDL Cholesterol 32 mg/dL; LDL Cholesterol Calculated 193 mg/dl; Potassium 4.3 mmol/L (3.3-5.1); Sodium 135 mmol/L (135-145); Total Protein 8.2 g/dL (6.5-8.0); Triglycerides 126 mg/dL
[2023-04-02 14:43] LABS: TSH reflex Free T4 1.87 uIU/mL (0.32-4.0)
== END 2023-04-02 12:05 | disposition home or self-care (01) ==
LOC: HO.LAB 12:04
PROVIDERS: PCP Family Medicine; Visit Provider Family Medicine
DX: Z00.00 Encounter for general adult medical examination without abnormal findings (principal); I50.9 Heart failure, unspecified; I10 Essential (primary) hypertension; Z12.5 Encounter for screening for malignant neoplasm of prostate
CPT/HCPCS: 36415; 80053; 80061; 81001; 82043; 83880; 84153; 84443; 85025

== ENCOUNTER → 2023-04-21 09:40 | Outpatient (BNVA) | payer OTHER, SELFPAY | PROVIDERS: PCP Family Medicine | DX: Z13.89 Encounter for screening for other disorder (principal) | CPT/HCPCS: 99203 ==

== ENCOUNTER 2023-04-21 10:32 | Emergency (ER) | payer OTHER, SELFPAY ==
--- NOTE | ~2023-04-21 | CT_ITS ---
EXAMINATION: CT HEAD WITHOUT CONTRAST CLINICAL INFORMATION: Status post fall with occipital tenderness. COMPARISON: None available. TECHNIQUE: Contiguous axial imaging was performed from the skull base to vertex without intravenous administration of contrast. Coronal and sagittal reformatted images were obtained. This CT examination was performed using dose optimization techniques as appropriate, variously including the following: *Automated exposure control *Adjustment of mA and/or kV according to patient size (this includes techniques or standardized protocols for targeted exams where dose is matched to indication/reason for exam; i.e. extremities or head) *Use of iterative reconstruction technique DLP: 772 mGy-cm FINDINGS: The cortical sulci are normal. The lateral ventricles are symmetrical. The third and fourth ventricles are in their normal midline position. The basilar and prepontine cisterns are unremarkable. There is no acute intra or extracerebral abnormality. There is no mass effect or midline shift. Sections through the bony calvarium are unremarkable. Incidental mildly prominent posterior occipital protuberance without associated abnormality. The paranasal sinuses show mild to moderate mucosal thickening in the ethmoid sinuses, left greater than right. Mild anterior nasal septal deviation, apex the right. Left eliud bullosa. The bony orbits and orbital contents are unremarkable. CT/CT head/brain wo IV con IMPRESSION: No acute intracranial pathology.
[2023-04-21 10:45] VITALS: BP 172/45; PULSE 71; RESP 19; TEMP 36.6; O2SAT 96; BMI 57.4
--- NOTE | 2023-04-21 11:39 | ED.GENADULT ---
HPI - General Adult General Chief complaint: Head Injury Stated complaint: Head Injury Time Seen by Provider: 04/21/23 11:39 Source: patient Mode of arrival: ambulatory Limitations: no limitations History of Present Illness HPI narrative: Patient is a 47-year-old male with history of Hodgkin's lymphoma, hypertension, myocarditis, BETSY, asthma presenting to the emergency department with headache, lightheadedness, nausea after fall out of chair on Wednesday. Patient states fall was mechanical, wheels on chair slipped out from under him causing him to fall to the floor and strike the back of his head. He denies loss of consciousness. He is not anticoagulated. Denies blurred vision, double vision or other vision changes. Denies vomiting. Reports that he stayed home from work yesterday. Denies any neck or back pain. Denies any paresthesias. Has used ice pack as well as ibuprofen for his headache. MD complaint: head injury Onset (ago): day(s) Location: head Radiation: non-radiation Severity: moderate Quality: aching Pain Consistency: constant Relieving factors: rest Exacerbating factors: movement Associated symptoms: nausea/vomiting (Reports nausea, denies vomiting) Treatments prior to arrival: NSAID and cold therapy Related Data Home Medications Medication Instructions Recorded Confirmed fluticasone propionate 50 1 spray intranasal DAILY 04/13/22 10/12/22 mcg/actuation nasal spray,suspension Previous Rx's Medication Instructions Recorded albuterol sulfate 90 mcg/actuation 2 puff PO Q4-6H PRN for wheezing 11/11/21 aerosol inhaler #8.5 grams ipratropium 0.5 mg-albuterol 3 mg 3 ml inhalation Q4-6H PRN wheezing 08/03/22 (2.5 mg base)/3 mL nebulization 30 days #270 mL soln hydrochlorothiazide 25 mg tablet 50 mg PO DAILY 90 days #180 tabs 02/03/23 lisinopril 30 mg tablet 30 mg PO DAILY 90 days #90 tabs 02/03/23 fluticasone fur. 200 mcg-umeclid 1 ea inhalation DAILY 30 days #1 ea 02/25/23 62.5 mcg-vilant 25 mcg inhalat.powder (Trelegy Ellipta) Allergies Allergy/AdvReac Type Severity Reaction Status Date / Time No Known Allergies Allergy Verified 04/21/23 10:45 Review of Systems Review of Systems: As per HPI. Yes all other systems are reviewed and are negative Constitutional: Constitutional: Reports as per HPI [facility] Past Medical History Medical History (Updated 04/21/23 @ 12:56 by Zoie Munoz NP) Asthma History of Hodgkin's lymphoma History of pulmonary embolism Hyperlipidemia Hypertension, essential, benign Moderate persistent asthma Moderate persistent asthma with (acute) exacerbation Morbid obesity with BMI of 60.0-69.9, adult Obesity hypoventilation syndrome BETSY (obstructive sleep apnea) Post covid-19 condition, unspecified (~08/2021) Surgical History History of tonsillectomy Family History Family History (Updated 02/03/23 @ 15:14 by Nicci Hassan CMA) Mother Hypertension Father Hypertension Diabetes Other Mental health disorder Social History Social History Household Members: Spouse and Family Housing: House Do you presently have visiting nurse or other home services: No Alcohol intake: current Alcohol intake frequency: holidays/special occasions only Alcohol type: other Patient Tobacco Use Status: Former Tobacco user Quit Date: 2021 Smoked in Last 30 Days: No Use of substances other than those prescribed or required for medical reasons: No Advance Directives: No service: No Current occupational status: employed Physical Exam ED Vital Signs: Vital Signs - 24 hr 04/21/23 10:45 Temperature 98 F Pulse Rate 71 Respiratory Rate 19 Blood Pressure 172/45 H Pulse Oximetry 96 Oxygen Delivery Method Room Air BMI result Body Mass Index 57.4 Vital signs have been reviewed and appear to be correct. Blood pressure elevated. Heart rate normal. Respiratory rate normal. Temperature normal. Oxygen saturation normal. Const General: cooperative, healthy appearing and no acute distress Orientation/consciousness: oriented to person, oriented to place, oriented to time and patient oriented x3 Limitations: no limitations HENMT Head: Yes No palpable skull fracture present, Yes normocephalic, No Parsons's sign, No hematoma, No laceration, No occipital foramen tenderness, No raccoon eyes, Yes scalp tenderness (Right occipital area) and No periorbital ecchymosis Ears: external ears normal and TM's normal bilaterally General nose exam: Normal external nose present Face and sinus: Yes face symmetric Mouth: oropharynx normal and moist mucous membranes Throat: Yes uvula midline Eyes Pupils: Equal, round and reactive pupils present EOM: EOMs intact bilaterally Neck Neck: Yes normal visual inspection and Yes supple Resp Effort & Inspection: normal respiratory effort and able to speak in complete sentences Auscultation: clear to auscultation bilaterally Cardio Rate: regular rate Rhythm: regular rhythm Heart sounds: S1 normal heart sound present and S2 normal heart sound present GI Palpation (GI): Soft to palpation and nontender Auscultation: normoactive bowel sounds General: Yes no CVA tenderness Back/Spine/Pelvis Back: no CVA tenderness Cervical Spine: No Cervical spine tenderness and No step off deformity Thoracic/Lumbar Spine: No thoracic spinal tenderness and No lumbar spinal tenderness Skin General skin exam: elasticity normal and turgor normal Neuro General: oriented to person, oriented to place, oriented to time, patient oriented x3, moves all extremities, no focal motor deficits and CN's II-XI intact bilaterally Cranial nerves: Yes Equal, round and reactive pupils present Cognition (Neuro): normal cognition Extrem General: Yes full ROM, Yes no pedal edema and Yes no calf tenderness Psych Mental Status: mental status grossly normal Affect: normal affect Thought process: Normal thought process present Medical Decision Making Medical Decision Making MDM Narrative: Patient is a 47-year-old male with history of Hodgkin's lymphoma, hypertension, myocarditis, BETSY, asthma presenting to the emergency department with headache, lightheadedness, nausea after fall out of chair on Wednesday. On exam patient is awake, A+Ox3, VS WNL, afebrile, normal neurological exam without focal deficits, right occipital scalp tenderness, no periorbital ecchymosis, no Parsons sign, no raccoon eyes, no midline C-spine tenderness, PERRL, EOMs intact. Given reported symptoms and physical exam findings, initial differential includes concussion, skull fracture, ICH. CT notable for no acute intracranial pathology. My interpretation is in agreement with the radiologist's interpretation. Symptoms consistent with concussion. Patient updated on results and instructed to follow up with [facility]. Provided with concussion precautions, as well as precautions for returning to the ED. Patient verbalized understanding of and agreement with plan. Differential Diagnosis Differential Diagnoses: The differential diagnosis associated with the presentation includes As per HPI. Admission/Observation Consideration of admission/observation: Escalation of care including admission/observation considered Considered given concern for ICH or skull fracture Independent Interpretation I performed an independent interpretation of an: CT Scan Interpretation: no acute intracranial abnormality Radiology Impression Discussion of test interpretation with radiology: I have reviewed the radiologist's reading. Radiologist Impression: FINDINGS: The cortical sulci are normal. The lateral ventricles are symmetrical. The third and fourth ventricles are in their normal midline position. The basilar and prepontine cisterns are unremarkable. There is no acute intra or extracerebral abnormality. There is no mass effect or midline shift. Sections through the bony calvarium are unremarkable. Incidental mildly prominent posterior occipital protuberance without associated abnormality. The paranasal sinuses show mild to moderate mucosal thickening in the ethmoid sinuses, left greater than right. Mild anterior nasal septal deviation, apex the right. Left eliud bullosa. The bony orbits and orbital contents are unremarkable. CT/CT head/brain wo IV con IMPRESSION: No acute intracranial pathology. External Record Review External record reviewed: Inpatient record, Office record and Outpatient record Discharge Plan Discharge Clinical Impression: Concussion without loss of consciousness Patient Disposition: Home, Self-Care Instructions: Concussion (ED), Post Concussion Syndrome (ED) Additional Instructions: You have been evaluated in the emergency department today for head injury. Your CT scan did not show signs of bleed or fractures in your head. We recommend you take 600 mg ibuprofen every 6 hours or Tylenol 650 mg every 6 hours as needed for pain. If needed, you can alternate these medications so that you take 1 medication every 3 hours. For instance, at noon take ibuprofen, then at 3:00 p.m. take Tylenol, then at 6:00 p.m. take ibuprofen. Please schedule an appointment with for follow-up with your primary care provider as soon as possible. Please follow up with [facility] as well. Return to the emergency department if you experience worsening or uncontrolled pain, vision changes, recurrent vomiting, difficulty with normal activities, abnormal behavior, difficulty walking, numbness, weakness, or any other concerning symptoms. Prescriptions: No Action albuterol sulfate 90 mcg/actuation HFA aerosol inhaler 2 puff PO Q4-6H PRN (Reason: for wheezing) Qty: 8.5 0RF ipratropium-albuterol 0.5 mg-3 mg(2.5 mg base)/3 mL solution for nebulization 3 ml inhalation Q4-6H PRN (Reason: wheezing) 30 Days Qty: 270 6RF Trelegy Ellipta 200-62.5-25 mcg blister with device 1 ea inhalation DAILY 30 Days Qty: 1 6RF fluticasone propionate 50 mcg/actuation Anton,Suspension 1 spray INTRANASAL DAILY Rx Instructions: administer into each nostril hydrochlorothiazide 25 mg tablet 50 mg PO DAILY 90 Days Qty: 180 3RF lisinopril 30 mg tablet 30 mg PO DAILY 90 Days Qty: 90 3RF
== END 2023-04-21 13:06 | disposition home or self-care (01) ==
PROVIDERS: Emergency Provider Emergency Medicine; PCP Family Medicine
DX: S06.0X0A Concussion without loss of consciousness, initial encounter (principal); W07.XXXA Fall from chair, initial encounter; Y93.89 Activity, other specified; Y92.019 Unspecified place in single-family (private) house as the place of occurrence of the external cause; Y99.9 Unspecified external cause status
CPT/HCPCS: 70450; 99284

== ENCOUNTER → 2023-04-26 08:46 | Outpatient (BNVA) | payer OTHER, SELFPAY | PROVIDERS: PCP Family Medicine; Visit Provider Physician Assistant Medical | DX: Z13.89 Encounter for screening for other disorder (principal) | CPT/HCPCS: 99213 ==

== ENCOUNTER 2023-06-25 13:15 | Outpatient (AMB) | payer OTHER, SELFPAY ==
[2023-06-25 13:23] VITALS: BP 142/66; PULSE 79; O2SAT 98; BMI 55.7
--- NOTE | 2023-06-25 13:23 | MHC.PC.OV ---
Vital Signs 06/25/23 13:23 Height 5 ft 10 in Weight 388 lb BMI 55.7 BP 142/66 H Blood Pressure Location Lt brachial Position Sitting Pulse 79 Pulse Source Pulse Oximeter Pulse Oximetry (%) 98 Oxygen Delivery Method Room Air Intake Visit Reasons: fmla paperwork Intake Note: Patient is here for FMLA paperwork. Allergies No Known Allergies Allergy (Verified 06/25/23 13:25) Tobacco use date assessed: 06/25/23 Dental Screening Dental Screen Date: 06/25/23 Did you have a dental visit in the last 12 months?: Yes Did you have a dental problem in the last 6 months where you did not have access to dental care?: No Was dental information given to patient?: Patient declined HPI fmla paperwork HPI Details 47 y/o male presents today for FMLA paperwork. He is going to be spending 2 weeks at a [employer] program from 07/21/23 to 08/04/23. [facility] Medical History Obesity hypoventilation syndrome Moderate persistent asthma with (acute) exacerbation Moderate persistent asthma History of pulmonary embolism History of Hodgkin's lymphoma Hyperlipidemia Hypertension, essential, benign Morbid obesity with BMI of 60.0-69.9, adult Post covid-19 condition, unspecified (~08/2021) BETSY (obstructive sleep apnea) Asthma Surgical History History of tonsillectomy Family History Mother Hypertension Father Hypertension Diabetes Other Mental health disorder Social History Household Members: Spouse and Family Housing: House Do you presently have visiting nurse or other home services: No Alcohol intake: current Alcohol intake frequency: holidays/special occasions only Alcohol type: other Patient Tobacco Use Status: Former Tobacco user Quit Date: 2021 e-Cigarette/Vaping Use: Never Used service: No Current occupational status: employed 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 Cognitive needs: No Hearing needs: No Vision needs: No Review of Systems Const Denies chills, Denies fatigue, Denies fever(s), Denies headache(s) and Denies weakness ENT Denies dizziness and Denies headache(s) Card Denies chest pain, Denies lightheadedness, Denies dyspnea and Denies other (Palpitations) Resp Denies cough, Denies dyspnea, Denies wheezing and Denies other ( shortness of breath) Musc Denies numbness and Denies tingling Neuro Denies dizziness, Denies headache(s), Denies numbness, Denies tingling, Denies paresthesias and Denies weakness Psych Denies anxiety and Denies depression Endo Denies fatigue Aller/Immun Denies wheezing Physical exam (Primary Care) Vital Signs: Last Vital Signs Pulse 79 06/25/23 13:23 BP 142/66 H 06/25/23 13:23 Pulse Ox 98 06/25/23 13:23 Oxygen Delivery Method Room Air 06/25/23 13:23 BMI result Body Mass Index 55.7 Tobacco/Smoking Status: Tobacco use Status Tobacco use date assessed 06/25/23 06/25/23 13:33 Patient Tobacco Use Status Former Tobacco user 06/25/23 13:33 e-Cigarette/Vaping Use Never Used 06/25/23 13:33 Const General: no acute distress and well developed Nutritional Appearance: well nourished Orientation/consciousness: patient oriented x3 HENMT Head: Yes normocephalic and Yes atraumatic Eyes General: appearance normal, both eyes and all related structures Pupils: Equal, round and reactive pupils present EOM: EOMs intact bilaterally Resp Effort & Inspection: normal respiratory effort Auscultation: clear to auscultation bilaterally Cardio Rate: regular rate Rhythm: regular rhythm Heart sounds: S1 normal heart sound present, S2 normal heart sound present, no gallops, no murmurs and no rubs Neuro General: patient oriented x3 and gait normal Cranial nerves: Yes Equal, round and reactive pupils present Psych Affect: normal affect Assessment and Plan Assessment & Plan (1) Substance abuse: Code(s): F19.10 - Other psychoactive substance abuse, uncomplicated Plan: Patient?will?be?in?a?partial?program?at[facility]for[facility]substance?abuse?between?07/21/2023?and?08/04/2023. FMLA?paperwork?is?filled?out He?has?an?appointment?already?scheduled?on?07/19/2023. Orders: Orders Comprehensive [place]. Panel Fast Today Z00.00 - Encounter for general adult medical examination without abnormal findings Complete Blood Count Auto Diff Today Z00.00 - Encounter for general adult medical examination without abnormal findings Prostate Specific Antigen Scr Today Z12.5 - Encounter for screening for malignant neoplasm of prostate Lipid Panel Today Z00.00 - Encounter for general adult medical examination without abnormal findings Microalbumin, Random (w Creat) Today I10 - Essential (primary) hypertension TSH reflex Free T4 Today Z00.00 - Encounter for general adult medical examination without abnormal findings UA and rflx microscopic Today Z00.00 - Encounter for general adult medical examination without abnormal findings Medications: Refilled lisinopril 30 mg PO DAILY 90 tabs 3RF 90 days Coding Level of Care Code Est Pt Level 3 (84117) Diagnoses Substance abuse F19.10
== END 2023-06-25 14:06 | disposition home or self-care (01) ==
PROVIDERS: PCP Family Medicine; Visit Provider Family Medicine
DX: F19.10 Other psychoactive substance abuse, uncomplicated (principal)
CPT/HCPCS: 99213

== ENCOUNTER → 2023-07-23 12:00 | Outpatient (BNV) | payer OTHER, SELFPAY | PROVIDERS: Visit Provider Psychiatry & Neurology Psychiatry | DX: F10.21 Alcohol dependence, in remission (principal); F41.1 Generalized anxiety disorder; F41.0 Panic disorder [episodic paroxysmal anxiety]; F32.A Depression, unspecified | CPT/HCPCS: 90792; 99213 ==

== ENCOUNTER 2023-08-06 13:15 | Outpatient (RCR) | payer OTHER, MEDICAID, SELFPAY ==
--- NOTE | 2023-07-22 11:15 | PC.ADMIT ---
Patient is a 48 year old male who was referred by [facility] EAP program and is unable to return to work at [employer] unless he completes the program. Patient, per Integrative Assessment came into work smelling of alcohol. Patient reports drinking Whiskey with water 1-2 20 oz drinks on the weekends or every other day however not while at work. He reports last drink was on 06/09/23. He denied any history of ETOH detox sxs. Patient reports many stresses including possible foreclosure on his home. He stated if he can make the next three house payments he will be ok and stated he thinks he will be able to make the payments, marital problems, and reports much guilt over his daughter not wanting to be around him. Patient is alert and oriented x4. Calm and cooperative. Presented with depressed mood and anxious affect. Denied SI. Appears motivated for treatment. Medications reconciled with patient and patient's pharmacy. He reports taking medication as prescribed. He stated he will take his blood pressure medications when he gets home as he did not want to take them this morning otherwise he would be using the B/R throughout the day to urinate. Patent given a copy of his safety plan and I reviewed the plan with him.
[2023-07-22 11:16] VITALS: BP 142/92; PULSE 67; BMI 55.7
--- NOTE | 2023-07-22 18:17 | HO.PHP ---
Clients case was reviewed and opened today in treatment team.
--- NOTE | 2023-07-22 21:43 | P.HPPSP_ITS ---
HPI Date of Service: 07/22/23 Chief Complaint: ADHD,BALTAZAR Sources of Information: patient interviewed, chart reviewed and crisis/core team assessment reviewed HPI Narrative: This is the first [facility] admission for this 48 year old male who is an employee of [employer]. He was referred to [facility] program through the Employee Assistance Program due to substance abuse and mental health concerns. He reports a history of chronic anxiety and intermittent depressive episodes, which began to worsen last year in the context of financial and other family stressors, including potential foreclosure on their home. He reports being very upset today. He felt ambushed by his who told him she cant deal with it and wants me to move out He came home from the program to find his clothes packed in a garbage bag. He reports having a lot of anxiety over this and was up all night with nausea and vomiting. He reports family stressors including arguements with his , especially over the past year, often over financial stressors, which he notes has lead him to taking a 2nd job, in order to avoid bank foreclosure on their home. 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 Their 12-year daughter has been in therapy for anxiety, which he says has also been exacerb ated by he and his 's arguments. He denies any issues with aggression or assaultive behavior in the home. He says he is taking the blame for a lot of the family problems which he feels is unfair . He reports chronic struggles with anxiety, mostly generalized but can escalate until he experiences panic symptoms and anxiety attacks. He has self-medicated with alcohol but does not feels he drinks in excess. He reports drinking alcohol mostly in the form of whiskey which he has diluted in a flask of water and states it takes him almost 4-5 days to get through the flask which includes one small part whiskey to largely water. He admits his drinking has caused considerable strife between his and him. States he usually drinks to relax , never to get intoxicated, says he probably ever gets intoxicated less than 10% of the times he drinks. Reports history of one previous black-out ever, in April 2022. He says he generally keeps his drinking to the weekends, tries to avoid drinking during the week because of work and if he does (not more than 1 night a week) he has very little in the evening after work to decompress. He says he is currently not drinking. He says he has avoiding alcohol since Jun 09 but says the urges are still there to drink. Aside from the problems it causes him and his , he does not view the drinking to be an issue. However he acknowledges that he is currently on FMLA from work being mandated for treatment through his job here at [employer]. He has sent in a repeal. He also reports depressive symptoms since onset of stressors in the past year including feeling sadness, anhedonia, dark cloud hanging over my head all the time . Feelings of regret, loneliness, worry and problems with sleep. Appetite and energy are lower and says he has lost some weight, but still remains well- overweight and could afford the weight loss. Says drinking has remained in moderation and unchanged over this period. He denies any issues with hopelessness or SI. He denies issues with anger, and denies thoughts or urges to hurt others. Denies HI. Denies paranoia or AVH. Past Psychiatric History: No prior inpatient hospitalizations, no previous PHP admissions, no detox admissions No prior psychiatric treatment No previous attempts [facility] Medical History (Updated 07/22/23 @ 22:38 by Shobha Rizzo MD) History of pneumonia Obesity hypoventilation syndrome Moderate persistent asthma with (acute) exacerbation Moderate persistent asthma History of pulmonary embolism History of Hodgkin's lymphoma Hyperlipidemia Hypertension, essential, benign Morbid obesity with BMI of 60.0-69.9, adult Post covid-19 condition, unspecified (~08/2021) BETSY (obstructive sleep apnea) Asthma Narrative: PCP Dr. Shields Surgical History History of tonsillectomy Family History: Daughter also struggling with anxiety Social History: , has one daughter. Lives at home Substance History: Alcohol use since age 21, says he has been a regular drinker, social. But denies history of abuse or dependence. Denies ever experiencing withdrawals even when going long periods without. Trauma History: Denies Diagnostics Vital Signs (24Hr): Vital Signs - 24 hr 07/22/23 11:16 Pulse Rate 67 Blood Pressure 142/92 H BMI result Body Mass Index 55.7 Meds/Allergies Allergies Allergies Allergy/AdvReac Type Severity Reaction Status Date / Time No Known Allergies Allergy Verified 06/25/23 13:25 Mental Status Exam Mental Status Exam Patient Appearance: Well Grooomed Patient Orientation: Person, Place, Time and Situation Level of Consciousness: Awake and Alert Patient Behavior: Appropriate, Cooperative and Crying Mood Description: Anxious (Depressed) Affect Description: Sad Patient Cognition Impaired: No Ability to Follow Directions: Excellent Speech Pattern: Clear and Coherent Memory Description: Intact Hallucinations: None Delusions: Not Present Thought Process: Intact and Linear Thought Content: positive for Intact, positive for Circumstantial and positive for Goal Oriented Depressive Symptoms: Increased Anxiety, Difficulty Sleeping, Crying Spells, Significant Weight Loss, Loss of Int. in Activity, Feelings of Worthlessness, Feelings of Guilt, Unhappiness, Low Self Esteem, Loss of Energy and Difficulty Concentrating Judgement: Fair Judgement and Insight: fair/adequate Assessment & Plan Assessment & Plan (1) Generalized anxiety disorder with panic attacks: Status: Acute Code(s): F41.1 - Generalized anxiety disorder; F41.0 - Panic disorder [episodic p aroxysmal anxiety] (2) Depressive disorder: Status: Acute Code(s): F32.A - Depression, unspecified (3) Alcohol use disorder, moderate, in early remission: Status: Acute Code(s): F10.21 - Alcohol dependence, in remission Plan Admit to [facility] Start sertraline 50 mg qd (start 1/2 tablet daily for 4 - 6 days then increase to 1 tablet daily), 14 day Rx sent Start hydroxyzine 25 mg qhs (take 1-2 tabs daily PRN sleep), 14 day Rx sent Continue other regular medications Patient educated on: diagnosis and medication risk/benefits Informed Consent: understands Reason for continued partial hosp. stay Substantial Risk for: med/psych decompensation Certification I certify that partial hospital treatment is medically necessary due to the symptoms and problems resulting from the patient's mental illness and the failure to treat the patient at the partial hospital level of care would likely result in the patient requiring inpatient psychiatric care which could not be prevented at a less intensive level of care. Time Spent With Patient Time: Total time managing care of this patient today __60__ minutes.
--- NOTE | 2023-07-26 16:38 | HO.PHP ---
[facility] staff checked in with Denis prior to the third group beginning to see how he is doing knowing his mother's health is not well. 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 [facility] staff asked Denis again if he would like to be with his family during this time. Denis disclosed he would. [facility] staff was receptive and explored if Denis is feeling safe/will be here tomorrow. Denis presented no safety concerns and stated her will be here tomorrow.
--- NOTE | 2023-07-28 00:57 | HO.PHPPROGNO ---
Subjective Subjective Date of Service: 07/27/23 Reason For Visit: ADHD,BALTAZAR Interim History: Patient seen for follow-up today. Had not started on medication yet. Just picked up hydroxyzine today but there was no ZOloft to be picked up. I called pharmacy and was told they did not have medication earlier this morning, but now that have inventory and are filling his script for pick-up. He updated me on current stressors including mother in hospital at [facility], refusing further treatment, he and siblings are not optimistic and have fer making plans accordingly. Also discussed situation at [facility] with . he is considering moving in with his father in the short term. He is surprised he is managing as well as he has been these past couple of days. Continues to endorse poor sleep, appetite, energy, anhedonia and other symptoms of depression. Dneie any SI or aggresive ideaiton. Will go supervisor opening and picking the ZOloft later today and start. He denies any alcohol or substance use in the interim. He denies any issues with cravings. Medication Compliance: Yes Side effects from medications: No Mental Status Exam Mental Status Exam Narrative: Patient was alert and oriented, in no acute distress. Patient Appearance: casual Patient Behavior: Appropriate, Cooperative Mood Description: Anxious (Depressed) Affect Description: stressed without tearfulness, lability or irritability Patient Cognition Impaired: No Ability to Follow Directions: Excellent Speech Pattern: Clear and Coherent Memory Description: Intact Hallucinations: None Delusions: Not Present Thought Process: Intact and Linear Thought Content: relevant to stressors, increased goal orientation, feelings of demoralization, but more focused on problem-solving Judgment and Insight: fair/adequate Diagnostics Vital Signs (24Hr): BMI result Body Mass Index 55.7 Assessment & Plan Assessment & Plan (1) Depressive disorder: Status: Acute Code(s): F32.A - Depression, unspecified (2) Generalized anxiety disorder with panic attacks: Status: Acute Code(s): F41.1 - Generalized anxiety disorder; F41.0 - Panic disorder [episodic paroxysmal anxiety] (3) Alcohol use disorder, moderate, in early remission: Status: Acute Code(s): F10.21 - Alcohol dependence, in remission Plan start sertraline 25 mg qd (plan to titrate to 50 mg in 4 day as tolerated) start hydroxyzine 25 - 50 mg qhs PRN sleep continue other regular medications continue in [facility] Patient educated on: diagnosis and medication risk/benefits Informed Consent: understands Reason for contiued partial hosp. stay Substantial Risk for: rapid decompensation and med/psych decompensation Certification I certify that partial hospital treatment is medically necessary due to the symptoms and problems resulting from the patient's mental illness and the failure to treat the patient at the partial hospital level of care would likely result in the patient requiring inpatient psychiatric care which could not be prevented at a less intensive level of care. Total time managing care of this patient today __30__ minutes. Discharge Plan Discharge Attending provider: Shobha Rizzo Medications: New sertraline 50 mg tablet 50 mg PO DAILY Qty: 14 0RF Rx Instructions: take 1/2 tablet po qd for 4 days then increase to 1 tablet po qd hydroxyzine HCl 25 mg tablet 25 - 50 mg PO BEDTIME PRN (Reason: insomnia, anxiety) Qty: 14 0RF No Action albuterol sulfate 90 mcg/actuation HFA aerosol inhaler 2 puff PO Q4-6H PRN (Reason: for wheezing) Qty: 8.5 0RF Trelegy Ellipta 200-62.5-25 mcg blister with device 1 ea inhalation DAILY 30 Days Qty: 1 6RF lisinopril 30 mg tablet 30 mg PO DAILY 90 Days Qty: 90 3RF hydrochlorothiazide 25 mg tablet 50 mg PO DAILY 90 Days Qty: 180 3RF
--- NOTE | 2023-08-02 15:04 | HO.PHP ---
Referral faxed to [facility] for med. management for Denis Kisermolly, on 08/02, 3:00pm.
--- NOTE | 2023-08-04 15:03 | HO.PHP ---
[facility] staff member talked to Dayan from [facility] who provided clarification around policy changes. Dayan voiced that in order for them to engage in med management, they need to a least meet with a therapist here one time for the intake appointment. [facility] staff member was receptive. Dayan disclosed that she will be returning a call with the med management appointment. [facility] staff member was receptive.
--- NOTE | 2023-08-04 16:45 | HO.PHP ---
[facility] staff member received a call from Dayan, from [facility], with Denis's Med provider appointment, in which she voiced it is scheduled with Sulma Briones via telehealth on September 01, 2023 at 11 AM. Dayan asked for the clinician to get the clients email so they can send the telehealth information. [facility] staff member was receptive.
--- NOTE | 2023-08-04 17:00 | HO.PHP ---
[facility] referral for [facility] med management placed, appointment for intake set for Aug.09 at 3:[address] [place] [address], .
--- NOTE | 2023-08-06 09:44 | HO.PHP ---
[facility] staff member spoke to Denis regarding med provider appointments. Denis disclosed that he does not need those appointments anymore due to feeling better since the passing of his mother. Denis had noted that his anxiety was coming around medical concerns with his mother and worrying about her health. Denis stated he hasn't been taking his Hydroxyzine for about a week and is feeling great. Denis disclosed that the [facility] staff member can cancel those appointments. Denis voiced he will be meeting with a therapist through [facility]. [facility] staff member was receptive and stated if he ever feels he needs medication to let [facility] know. Denis was receptive.
--- NOTE | 2023-08-06 22:17 | P.PNPSP_ITS ---
Subjective Subjective Date of Service: 08/06/23 Reason For Visit: ADHD,BALTAZAR Interim History: Patient is being discharged from [facility] today. He was seen by this provider. No acute issues or concerns. He reports things are great . He feels he has been getting things in order since his mother's passing, and that although he was sad that his mother is gone, he also adds that it came as a big relief; the burden of care had been falling on his 90 yo father who was struggling to provide care for her. He continues to live at home with his who is still moving forward with the legal steps of filing for divorce but also gets the impression that she is not rushing this and is seeing how he works through the program and is monitoring his recovery. He reports that he has not continued taking medication. He stopped the Zoloft 2 days ago. Says he had been feeling fine in the days since starting on the medication and just feels he likely does not need to be on medication. He also has been out of hydroxyzine for a couple of days and does not want t refill as he prefers not to take medications at this time. He has not had any relapses since being in [facility]. Last drink was in May. It was initially difficult he says but has had no further urges to drink. His father has also been in recovery for some time now and feels confident he will be able to do the same. His daughter has been staying with his inlaws, he is hoping at some point that they engage in family therapy which he is open to. For now, he plans to engage in individual therapy (as per conditions of his employment), he will be contacting [facility] today to set up an appointment. reports his mood is excellent . He is future-oriented, denies any thoughts of giving up on life, no SI or HI. No evidence of hilary or psychosis. Medication Compliance: No Side effects from medications: No Review of Systems Acute medical concerns: No Mental Status Exam Mental Status Exam Narrative: Patient was alert and oriented, in no acute distress. Patient Appearance: casual Patient Behavior: Appropriate, Cooperative Mood Description: good Affect Description: bright, euthymic Patient Cognition Impaired: No Ability to Follow Directions: Excellent Speech Pattern: Clear and Coherent Memory Description: Intact Hallucinations: None Delusions: Not Present Thought Process: goal-directed Thought Content: future orientated, relevant to stressors Judgment/Insight: good but tenuous/fair Diagnostics Vital Signs (24Hr): BMI result Body Mass Index 55.7 Assessment & Plan Assessment & Plan (1) Alcohol use disorder, moderate, in early remission: Status: Acute Code(s): F10.21 - Alcohol dependence, in remission (2) Generalized anxiety disorder with panic attacks: Status: Acute Code(s): F41.1 - Generalized anxiety disorder; F41.0 - Panic disorder [episodic paroxysmal anxiety] (3) Depressive disorder: Status: Acute Code(s): F32.A - Depression, unspecified Plan Discharge from [facility] Per patient preference he has discontinued medications (Zoloft and hydroxyzine) which were started only last week. Denies any adverse effects, just feel he improved over the course of his stay here and engaging in groups and changes in his situation at home. He is focused on his recovery. Discharge instructions were reviewed, packet signed and given to patient. Follow up with community provider and will be starting therapy. Patient educated on: diagnosis and medication risk/benefits Informed Consent: understands Reason for contiued partial hosp. stay Substantial Risk for: stable for discharge Certification I certify that partial hospital treatment is medically necessary due to the symptoms and problems resulting from the patient's mental illness and the failure to treat the patient at the partial hospital level of care would likely result in the patient requiring inpatient psychiatric care which could not be prevented at a less intensive level of care. Total time managing care of this patient today ___30_ minutes. Discharge Plan Discharge Attending provider: Shobha Rizzo Medications: New sertraline 50 mg tablet 50 mg PO DAILY Qty: 14 0RF Rx Instructions: take 1/2 tablet po qd for 4 days then increase to 1 tablet po qd hydroxyzine HCl 25 mg tablet 25 - 50 mg PO BEDTIME PRN (Reason: insomnia, anxiety) Qty: 14 0RF Continued albuterol sulfate 90 mcg/actuation HFA aerosol inhaler 2 puff PO Q4-6H PRN (Reason: for wheezing) Qty: 8.5 0RF Trelegy Ellipta 200-62.5-25 mcg blister with device 1 ea inhalation DAILY 30 Days Qty: 1 6RF lisinopril 30 mg tablet 30 mg PO DAILY 90 Days Qty: 90 3RF hydrochlorothiazide 25 mg tablet 50 mg PO DAILY 90 Days Qty: 180 3RF Stand Alone Forms: Patient Portal Discharge page Patient Education: Depression (DC), Alcohol Use Disorder (DC)
== END 2023-08-06 23:59 | disposition home or self-care (01) ==
LOC: HO.PHPA 13:15
PROVIDERS: Visit Provider Psychiatry & Neurology Psychiatry
DX: F32.A Depression, unspecified (principal); F41.1 Generalized anxiety disorder; F41.0 Panic disorder [episodic paroxysmal anxiety]; F10.21 Alcohol dependence, in remission
CPT/HCPCS: 90791; 90853

== ENCOUNTER 2023-08-26 08:18 | Outpatient (AMB) | payer OTHER, SELFPAY ==
[2023-08-26 08:31] VITALS: BP 138/76; PULSE 66; RESP 13; TEMP 36.6; O2SAT 98; BMI 56.3
--- NOTE | 2023-08-26 08:31 | A.OFFPC_ITS ---
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: No Accompanied by: Self / Same As Patient Allergies No Known Allergies Allergy (Verified 08/26/23 08:43) Medication List - Last Reconciled 08/26/23 by Emperatriz Arreguin CNP albuterol sulfate 90 mcg/actuation 2 puffs PO Q4-6H PRN pzhomklpwxy-gzknvoccv-[id number] 200-62.5-25 mcg (Trelegy Ellipta) 1 ea inhalation DAILY 30 days hydrochlorothiazide 50 mg (2 x 25 mg) PO DAILY 90 days hydroxyzine HCl 25 - 50 mg (1 - 2 x 25 mg) PO BEDTIME PRN lisinopril 30 mg PO DAILY 90 days sertraline 50 mg PO DAILY Tobacco use date assessed: 06/25/23 Dental Screening Dental Screen Date: 08/26/23 Did you have a dental visit in the last 12 months?: No Did you have a dental problem in the last 6 months where you did not have access to dental care?: No Was dental information given to patient?: Patient declined HPI HPI Comments History of Present Illness Details 48-year-old male presents for complete p hysical exam He has history of hypertension, asthma, and morbid obesity He admits to taking medications as prescribed without adverse reactions He offers no complaints and denies acute symptoms at this time He notes that he has been making lifestyle changes including healthy diet and walking long distances. He notes that he has been losing weight [facility]LY [facility] Medical History History of pneumonia Obesity hypoventilation syndrome Moderate persistent asthma with (acute) exacerbation Moderate persistent asthma History of pulmonary embolism History of Hodgkin's lymphoma Hyperlipidemia Hypertension, essential, benign Morbid obesity with BMI of 60.0-69.9, adult Post covid-19 condition, unspecified (~08/2021) BETSY (obstructive sleep apnea) Asthma Surgical History History of tonsillectomy Family History Mother Hypertension Father Hypertension Diabetes Other Mental health disorder Social History Household Members: Spouse and Children Housing: House Do you presently have visiting nurse or other home services: No Alcohol intake: current Alcohol intake frequency: holidays/special occasions only Alcohol type: other Patient Tobacco Use Status: Never used Tobacco e-Cigarette/Vaping Use: Never Used service: No Current occupational status: employed 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 1. Little interest or pleasure in doing things: not at all 2. Feeling down, depressed, or hopeless: not at all 3. Trouble falling or staying asleep, or sleeping too much: several days 4. Feeling tired or having little energy: not at all 5. Poor appetite or overeating: not at all 6. Feeling bad about yourself - or that you are a failure or have let yourself or your family down: not at all 7. Trouble concentrating on things, such as reading the newspaper or watching television: not at all 8. Moving or speaking so slowly that other people could have noticed. Or the opposite - being so fidgety or restless that you have been moving around a lot more than usual: not at all 9. Thoughts that you would be better off or of hurting yourself in some way: not at all Total score: 1 Depression Screening Interpretation: Negative Depression Screening Done: Yes 85778 - PHQ-9 Billing: Yes Source: Developed by Drs. Marcus Harley, Tarah Crespo, Rylan Nuno and colleagues, with an educational mel from [employer]. Thrive Questionnaire Date Thrive assessed: 08/26/23 I am a: Patient What is your living situation today?: I have a steady place to live Within the past 12 months, did the food you bought not last and you didn't have the money to get more?: Never true Within the past 12 months, did you worry whether your food would run out before you got money to buy more?: Never true Do you have trouble paying for medicines?: No Do you have trouble getting transportation to medical appointments?: No Do you have trouble paying your heating and electricity bill?: No Do you have trouble taking care of your child, family member or friend?: No Do you have trouble with day-to-day activities such as bathing, preparing meals, shopping, managing finances, etc.?: No Are you currently unemployed and looking for a job?: No Are you interested in more education?: No Please select the resources that you would like help with: None Currently or been in a relationship where the following occur: no concerns reported AUDIT C Alcohol Use Questionnaire (AUDIT-C) 1. How often do you have a drink containing alcohol?: 2-3 times a week 2. How many drinks containing alcohol do you have on a typical day when you are drinking?: 1 or 2 3. How often do you have six or more drinks on one occasion?: Never Total Score: 3 YANE-7 AMB Questionnaire YANE-7 Date YANE - 7 assessed: 08/26/23 Feeling nervous, anxious, or on edge: 1 = Several days Not being able to stop or control worryin = Several days Worrying too much about different things: 0 = Not at all Trouble relaxin = Not at all Being so restless that it is hard to sit still: 0 = Not at all Becoming easily annoyed or irritable: 1 = Several days Feeling afraid as if something awful might happen: 0 = Not at all Total YANE-7 score (0-4 normal; 5-9 mild; 10-14 moderate; 15-21 severe): 3 Source: Developed by Drs. Marcus Harley, Tarah Crespo, Rylan Nuno and colleagues, with an educational mel from [employer]. YANE-7 Assessment Billing YANE-7 Assessment Tool: YANE-7 Assessment 09448 ACT Questionnaire In the past 4 weeks, how much of the time did your asthma keep you from getting as much done at work, school or at home?: None of the time During the past 4 weeks, how often have you had shortness of breath?: Not at all During the past 4 weeks, how often did your asthma symptoms wake you up at night or earlier than usual in the morning?: Not at all During the past 4 weeks, how often have you had to use your rescue inhaler or nebulizer medication?: Not at all How would you rate your asthma control during the past 4 weeks?: Well controlled ACT Interpretation: Positive Score: 24 Review of Systems Const Details: Denies chills, Denies fatigue, Denies fever(s), Denies headache(s) and Denies weakness HEENT Denies change in vision, Denies dizziness, Denies headache(s), Denies hearing loss, Denies nasal congestion, Denies sinus pain, Denies sinus pressure and Denies sore throat Card Denies chest pain, Denies lightheadedness, Denies dyspnea and Denies other (palpitations) Resp Denies cough, Denies dyspnea and Denies wheezing GI Denies abdominal pain, Denies melena, Denies hematochezia, Denies change in bowel habits, Denies dyspepsia and Denies nausea Denies hematuria and Denies dysuria Musc Denies abnormal gait, Denies myalgias, Denies arthralgias, Denies numbness and Denies tingling Skin/Breast Denies rash, Denies unusual bruising and Denies wounds Neuro Denies abnormal gait, Denies dizziness, Denies headache(s), Denies memory loss, Denies numbness, Denies Sensory deficit (Neuro), Denies tingling and Denies weakness Psych Denies anxiety, Denies depression and Denies memory loss Endo Denies cold intolerance, Denies fatigue, Denies heat intolerance, Denies polydipsia and Denies polyuria Vamsi/Lymph Denies easy bleeding and Denies easy bruising Aller/Immun Denies wheezing Physical exam (Primary Care) Vital Signs: Last Vital Signs Temp 98 F 08/26/23 08:31 Pulse 66 08/26/23 08:31 Resp 13 08/26/23 08:31 BP 138/76 08/26/23 08:31 Pulse Ox 98 08/26/23 08:31 Oxygen Delivery Method Room Air 08/26/23 08:31 BMI result Body Mass Index 56.3 Tobacco/Smoking Status: Tobacco use Status Tobacco use date assessed 06/25/23 08/26/23 08:40 Patient Tobacco Use Status Never used Tobacco 08/26/23 08:40 e-Cigarette/Vaping Use Never Used 08/26/23 08:40 PHQ-9: PHQ-9 Score PHQ-9: Total score 1 08/26/23 08:40 Depression Screening Interpretation: Negative Thrive Assessment: Date of Thrive Assessment Date Thrive assessed 08/26/23 08/26/23 08:40 Currently or been in a relationship where the following occur: no concerns reported Const Other: General: no acute distress, well developed, alert and awake Nutritional Appearance: well nourished Orientation/consciousness: patient oriented x3 HENMT Head: Yes normocephalic and Yes atraumatic Ears: hearing grossly normal bilaterally and TM's normal bilaterally General nose exam: Normal external nose present and Normal nares present Mouth: Normal oral and palatal mucosa present and moist mucous membranes Teeth and gingiva: dentition normal Throat: Yes oropharynx normal Eyes Pupils: Equal, round and reactive pupils present and Pupil accommodation reflex normal EOM: EOMs intact bilaterally Neck Neck: Yes normal visual inspection, Yes no lymphadenopathy and Yes trachea midline Thyroid: Thyroid normal Carotids: no bruits Lymphatic: no lymphadenopathy noted Chest Chest palpation & inspection: normal inspection of the chest Resp Effort & Inspection: normal respiratory effort Auscultation: clear to auscultation bilaterally Cardio Rate: regular rate Rhythm: regular rhythm Heart sounds: S1 normal heart sound present, S2 normal heart sound present, no gallops, no murmurs and no rubs Bruits: no abdominal aortic bruits and no carotid bruits GI Palpation (GI): No Abdominal aortic bruit present, Soft to palpation, nontender, No hepatosplenomegaly present and No Rebound tenderness present Auscultation: normal bowel sounds General: Yes no CVA tenderness Back/Spine/Pelvis Back: no CVA tenderness Cervical Spine: cervical ROM normal and No Cervical spine tenderness Thoracic/Lumbar Spine: thoraco-lumbar ROM normal, No pain with thoraco-lumbar ROM, No thoracic spinal tenderness and No lumbar spinal tenderness Skin General: warm and dry. Normal skin color. Normal skin turgor Lesions: no lesions Rashes: no rashes Trauma: no lacerations or abrasions Wounds: no wounds Nails: normal Neuro General: patient oriented x3, gait normal and CN's II-XI intact bilaterally Cranial nerves: Yes Equal, round and reactive pupils present Cognition (Neuro): normal cognition Gait exam (Neuro): Normal gait present Motor exam (neuro): 5/5 motor strength present throughout Sensory Exam: No Sensory deficit (Neuro) Deep tendon reflexes (DTR's): Right patellar reflex intensity grade: 2+ and Left patellar reflex intensity grade: 2+ Extrem General: Yes normal to inspection, No edema and No calf tenderness Psych Appearance: grossly normal Affect: normal affect Attitude: cooperative Thought process: Normal thought process present Assessment and Plan Assessment & Plan (1) Normal physical examination, routine: Code(s): Z00.00 - Encounter for general adult medical examination without abnormal findings Plan: No significant physical restrictions or limitations noted Continue current treatment regimen His PCP ordered labs in May which he has not gotten drawn. Advised to get fasting blood work done before his next visit Follow-up with PCP in 3 months for hypertension and labs review Return sooner with symptoms or concerns Verbalized understanding and agreed with treatment plan (2) Hypertension, essential, benign: Code(s): I10 - Essential (primary) hypertension Plan: Blood pressure is 138/76 Continue current treatment regimen Low-sodium diet encouraged Follow-up with PCP in 3 months Verbalized understanding and agreed with treatment plan (3) Morbid obesity with BMI of 50.0-59.9, adult: Code(s): E66.01 - Morbid (severe) obesity due to excess calories; Z68.43 - Body mass index [BMI] 50.0-59.9, adult Plan: He admits to making lifestyle changes including healthy diet and exercise. He notes that he has been losing weight He currently weights 392 lb, BMI is 56.3 Declines referral to creasing machine operator/dietitian or weight management Healthy diet and routine exercise encouraged He may contact his PCP if he requires a referral to creasing machine operator/dietitian or weight management Follow up with symptoms or concerns Verbalized understanding and agreed with the plan Coding Level of Care Code Est Pt Prev Care 40-64y(87862) Diagnoses Normal physical examination, routine Z00.00 Hypertension, essential, benign I10 Morbid obesity with BMI of 50.0-59.9, adult E66.01; Z68.43 Additional Codes YANE-7 Assessment Billing - YANE-7 Assessment Tool: YANE-7 Assessment [id number] ([id number])
== END 2023-08-26 08:55 | disposition home or self-care (01) ==
PROVIDERS: PCP Family Medicine; Visit Provider Nurse Practitioner Family
DX: Z00.00 Encounter for general adult medical examination without abnormal findings (principal); I10 Essential (primary) hypertension; E66.01 Morbid (severe) obesity due to excess calories; Z68.43 Body mass index [BMI] 50.0-59.9, adult
CPT/HCPCS: 99396

== ENCOUNTER 2023-09-13 09:56 | Outpatient (REF) | payer OTHER, SELFPAY ==
[2023-09-13 10:48] LABS: MANUAL DIFF FLAG NO
[2023-09-13 10:51] LABS: Appearance Urine Clear; Basophils Percent Auto 0.5 % (0-2); Color Urine Yellow; Eosinophils Absolute Auto 0.2 X10*3/uL (0.0-0.4); Eosinophils Percent Auto 2.2 % (0-4); Glucose Urine UA Negative (Negative); Hematocrit 40.1 % (42.0-52.0); Hemoglobin 13.2 g/dl (14.0-18.0); Imm Gran Abs Auto 0.02 X10*3/uL (0.00-0.03); Imm Gran Pct Auto 0.2 % (0.0-0.4); Leukocyte Esterase Urine Trace (Negative); Lymphocytes Absolute Auto 0.4 X10*3/uL (1.2-4.9); Lymphocytes Percent Auto 5.2 % (20-40); Mean Corpuscular HGB Conc 32.9 g/dl (31.0-36.0); Mean Corpuscular Hemoglobin 32.6 pg (27.0-33.0); Mean Platelet Volume 9.7 fL (9.4-12.4); Monocytes Absolute Auto 0.5 X10*3/uL (0.1-1.2); Monocytes Percent Auto 6.4 % (2-11); Neutrophils Absolute Auto 6.9 x10*3/uL (2.0-8.3); Neutrophils Percent Auto 85.5 % (45-73); Nitrite Urine Negative (Negative); PH 5.5 (5.0-9.0); Platelet Count 168 X10*3/uL (160-400); Red Blood Count 4.05 X10*6/uL (4.60-5.80); Red Cell Distribution Width 13.8 % (11.0-16.0); UMIC TRIGGER UA YES; Urine Blood Negative (Negative); Urine Ketones Trace mg/dL (Negative); Urine Protein Negative (Neg-Trace)
[2023-09-13 10:53] LABS: Bacteria Urine None Seen (None Seen); Hyaline Casts Urine 0-2 /LPF (0-2); RBC Urine 0-2 /HPF (0-2); Squamous Epithelial Cell Urine 0-2 /HPF (0-2); WBC Urine 0-5 /HPF (0-5)
[2023-09-13 11:09] LABS: Alanine Aminotransferase 37 U/L (0-40); Albumin Level 4.1 g/dL (3.5-5.0); Alkaline Phosphatase 91 U/L (39-117); Anion Gap 15 (12-20); Aspartate Amino Transferase 28 U/L (5-37); Blood Urea Nitrogen 18 mg/dL (9-16); Calcium 9.4 mg/dL (8.4-10.2); Carbon Dioxide 27 mmol/L (22-29); Chloride 98 mmol/L (96-108); Cholesterol 237 mg/dL (<200); Estimated Glomerular Filt Rate > 60; Glucose Fasting 119 mg/dL (60-99); HDL Cholesterol 72 mg/dL (>40); LDL Cholesterol Calculated 149 mg/dL (<100); Potassium 3.6 mmol/L (3.3-5.1); Sodium 136 mmol/L (135-145); Total Protein 7.6 g/dL (6.5-8.0); Triglycerides 84 mg/dL (<150)
[2023-09-13 11:19] LABS: Prostate Specific Antigen Scr 0.44 ng/mL (<0.05-4.0)
[2023-09-13 11:26] LABS: TSH reflex Free T4 1.91 uIU/mL (0.32-4.0)
[2023-09-13 12:11] LABS: Creatinine Urine 120.34 mg/dL; Microalbum/Creatinine Ratio Ur 23.2 ug/mg cr (<30)
[2023-09-14 07:26] LABS: Estimated Average Glucose 108 mg/dL; Hemoglobin A1c % 5.4 % (<6.0)
== END 2023-09-13 09:57 | disposition home or self-care (01) ==
LOC: HO.10HDL 09:56
PROVIDERS: Anesthesiology; Visit Provider Family Medicine
DX: Z12.5 Encounter for screening for malignant neoplasm of prostate (principal); E66.01 Morbid (severe) obesity due to excess calories; Z68.43 Body mass index [BMI] 50.0-59.9, adult; I10 Essential (primary) hypertension
CPT/HCPCS: 36415; 80053; 80061; 81001; 82043; 82570; 83036; 84153; 84443; 85025

== ENCOUNTER 2023-09-15 10:59 | Outpatient (AMB) | payer OTHER, SELFPAY ==
[2023-09-15 11:01] VITALS: BP 174/84; PULSE 77; RESP 18; O2SAT 97; BMI 56.2
--- NOTE | 2023-09-15 11:01 | MHC.OFFVIS ---
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 He also reports intermittent numbness in the left upper extremity. He reports his pain started recently and associated with severe edema of the bilateral lower extremities. He reports that edema is dependent and when he sits in the chair with his feet elevated edema is getting better and pain is getting better. DVT is suspected. [facility] Medical History History of pneumonia Obesity hypoventilation syndrome Moderate persistent asthma with (acute) exacerbation Moderate persistent asthma History of pulmonary embolism History of Hodgkin's lymphoma Hyperlipidemia Hypertension, essential, benign Morbid obesity with BMI of 60.0-69.9, adult Post covid-19 condition, unspecified (~08/2021) BETSY (obstructive sleep apnea) Asthma Surgical History History of tonsillectomy Family History Mother Hypertension Father Hypertension Diabetes Other Mental health disorder Social History Household Members: Spouse and Children Housing: House Do you presently have visiting nurse or other home services: No Alcohol intake: current Alcohol intake frequency: holidays/special occasions only Alcohol type: other Patient Tobacco Use Status: Never used Tobacco e-Cigarette/Vaping Use: Never Used service: No Current occupational status: employed 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 Cognitive needs: No Hearing needs: No Vision needs: No Review of Systems Const Details: Denies chills, Denies fatigue, Denies fever(s), Denies headache(s) and Denies weakness HEENT Denies change in vision, Denies dizziness, Denies headache(s), Denies hearing loss, Denies nasal congestion, Denies sinus pain, Denies sinus pressure and Denies sore throat Card Denies chest pain, Denies lightheadedness, Denies dyspnea and Denies other (palpitations) Denies wheezing Denies fatigue, Reports weight gain and Denies weight loss Eyes Denies blurry vision ENT Reports Normal hearing present and Denies sore throat Card Denies dyspnea and Reports dyspnea on exertion Resp Denies cough, Denies dyspnea and Reports dyspnea on exertion GI Denies constipation and Denies diarrhea Denies dysuria and Denies urinary frequency Musc Reports numbness and Reports tingling Neuro Reports Normal hearing present, Denies Abnormal speech present, Denies confusion, Reports numbness, Denies Sensory deficit (Neuro), Reports tingling and Denies tremor(s) Psych Reports abnormal sleep pattern, Denies confusion and Denies depression Endo Denies fatigue Physical Exam Vital Signs: Last Vital Signs Pulse 77 09/15/23 11:01 Resp 18 09/15/23 11:01 BP 174/84 H 09/15/23 11:01 Pulse Ox 97 09/15/23 11:01 Oxygen Delivery Method Room Air 09/15/23 11:01 BMI result Body Mass Index 56.2 Const General: no acute distress; No confusion Nutritional Appearance: obese morbidly obese Orientation/consciousness: patient oriented x3 and No confusion Eyes General: appearance normal, both eyes and all related structures Pupils: Equal, round and reactive pupils present EOM: EOMs intact bilaterally Neck Neck: Yes full ROM Chest Chest palpation & inspection: normal inspection of the chest Resp Effort & Inspection: normal respiratory effort, able to speak in complete sentences, normal respiratory pattern, no audible wheezes and no cough Cardio Jugular venous distension: no JVD GI Inspection: Yes Abdominal panniculus present and Yes obesity Neuro General: patient oriented x3, gait normal and No confusion Cranial nerves: Yes CN's II-XII intact bilaterally, Yes Equal, round and reactive pupils present, Yes Normal hearing present and Yes Ability to bilaterally elevate shoulders present Speech: No Abnormal speech present Gait exam (Neuro): Normal gait present Motor exam (neuro): 5/5 motor strength present throughout Sensory Exam: No Sensory deficit (Neuro) Extrem General: Yes edema, No pedal edema and Yes venous stasis dermatitis Psych Speech and movement: Normal speech and movement present Affect: normal affect Attitude: cooperative Thought process: Normal thought process present Thought content: Normal thought content present Insight: Good insight present (Psych) Judgement: Good judgement present (Psych) Assessment & Plan Assessment & Plan (1) DVT (deep venous thrombosis): Code(s): I82.409 - Acute embolism and thrombosis of unspecified deep veins of unspecified lower extremity Plan: (2) Edema of lower extremity due to peripheral venous insufficiency: Code(s): I87.2 - Venous insufficiency (chronic) (peripheral) Plan: I will send this patient for duplex scan venous to rule out possibility of deep vein thrombosis and diagnosed venous insufficiency. I will send him to Dr. Tyler for vascular surgery evaluation. (3) Morbid obesity with BMI of 50.0-59.9, adult: Code(s): E66.01 - Morbid (severe) obesity due to excess calories; Z68.43 - Body mass index [BMI] 50.0-59.9, adult Plan: Coding Level of Care Code New Pt Level 3 (53062) Diagnoses DVT (deep venous thrombosis) I82.409 Edema of lower extremity due to peripheral venous insufficiency I87.2 Morbid obesity with BMI of 50.0-59.9, adult E66.01; Z68.43
== END 2023-09-15 11:22 | disposition home or self-care (01) ==
LOC: HO.PMC 10:59
PROVIDERS: PCP Family Medicine; Visit Provider Anesthesiology
DX: I82.409 Acute embolism and thrombosis of unspecified deep veins of unspecified lower extremity (principal); I87.2 Venous insufficiency (chronic) (peripheral); E66.01 Morbid (severe) obesity due to excess calories; Z68.43 Body mass index [BMI] 50.0-59.9, adult
CPT/HCPCS: 99203

== ENCOUNTER → 2023-09-15 10:59 | Outpatient (BNVA) | payer OTHER, SELFPAY | PROVIDERS: PCP Family Medicine; Visit Provider Anesthesiology ==

== ENCOUNTER 2023-09-15 14:49 | Outpatient (REF) | payer OTHER, SELFPAY ==
--- NOTE | ~2023-09-15 | US_ITS ---
EXAMINATION: US VENOUS ULTRASOUND WITH DOPPLER LOWER EXTREMITY, BILATERAL CLINICAL INFORMATION: Bilateral extremity edema COMPARISON: None available. TECHNIQUE: Ultrasound of the deep veins is performed from the hip to the calf with compression sonography and color and pulse Doppler assessment. Spectral analysis with color-flow imaging is performed. FINDINGS: RIGHT: There is normal venous compression and respiratory variation and augmented flow. The visualized common femoral vein, superficial femoral vein, profunda femoral vein, popliteal vein, and the trifurcation region shows no evidence of deep venous thrombosis. There is no significant popliteal fossa cyst. Distal segment of the superficial femoral vein is not well visualized due to body habitus. LEFT: There is normal venous compression and respiratory variation and augmented flow. The visualized common femoral vein, superficial femoral vein, profunda femoral vein, popliteal vein, and the trifurcation region shows no evidence of deep venous thrombosis. There is no significant popliteal fossa cyst. Distal segment of the bilateral superficial femoral vein is not well visualized due to body habitus. If the patient's symptoms persist, followup ultrasound in 5 days 7 days might be of value to exclude proximal propagation from a non-visualized calf vein. US/US venous duplex LE BI IMPRESSION: No DVT demonstrated in the bilateral lower extremity.
== END 2023-09-15 14:50 | disposition home or self-care (01) ==
LOC: HO.US 14:49
PROVIDERS: PCP Family Medicine; Visit Provider Anesthesiology
DX: I87.2 Venous insufficiency (chronic) (peripheral) (principal); R60.0 Localized edema
CPT/HCPCS: 93970

== ENCOUNTER 2024-08-03 14:32 | Outpatient (AMB) | payer OTHER, SELFPAY ==
[2024-08-03 14:37] VITALS: BP 138/64; PULSE 96; O2SAT 95; BMI 56.8
--- NOTE | 2024-08-03 14:37 | MHC.OFFVIS ---
Vital Signs 08/03/24 14:37 Height 5 ft 10 in Weight 395 lb 11.676 oz BMI 56.8 BP 138/64 Blood Pressure Location Lt radial Position Sitting Pulse 96 Pulse Source Doppler Pulse Oximetry (%) 95 Oxygen Delivery Method Room Air Intake Visit Reasons: Asthma Allergies No Known Allergies Allergy (Verified 09/15/23 11:02) HPI HPI Asthma: Details: 49-year-old gentleman, lifetime nonsmoker, with underlying obesity,? followed for moderate persistent asthma, moderate BETSY, and pulmonary component to dyspnea on exertion.? Patient has been using his CPAP with excellent control of his underlying sleep apnea symptoms.? He continues to use Trelegy with good control of his asthma symptoms and he rarely requires to use his albuterol MDI.? He denies any recent exacerbations. No significant changes since prior visit. [facility] Medical History History of pneumonia Obesity hypoventilation syndrome Moderate persistent asthma with (acute) exacerbation Moderate persistent asthma History of pulmonary embolism History of Hodgkin's lymphoma Hyperlipidemia Hypertension, essential, benign Morbid obesity with BMI of 60.0-69.9, adult Post covid-19 condition, unspecified (~08/2021) BETSY (obstructive sleep apnea) Asthma Surgical History History of tonsillectomy Family History Mother Hypertension Father Hypertension Diabetes Other Mental health disorder Social History Household Members: Spouse and Children Housing: House Do you presently have visiting nurse or other home services: No Alcohol intake: current Alcohol intake frequency: holidays/special occasions only Alcohol type: other Patient Tobacco Use Status: Never used Tobacco e-Cigarette/Vaping Use: Never Used service: No Current occupational status: employed 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 Cognitive needs: No Hearing needs: No Vision needs: No Review of Systems Const Denies daytime sleepiness, Denies excessive sweating, Denies fatigue, Denies fever(s), Denies lethargy, Denies malaise, Denies night sweats, Denies snoring and Denies weight loss Eyes Denies blurry vision and Denies itchy eyes ENT Denies nasal congestion, Denies post nasal drip, Denies sinus pain, Denies sinus pressure and Denies other ( Thrush) Card Denies chest pain, Denies pedal edema, Denies dyspnea, Denies orthopnea and Denies paroxysmal nocturnal dyspnea Resp Denies cough, Denies hemoptysis, Denies excessive phlegm production, Denies dyspnea, Denies snoring and Denies wheezing GI Denies abdominal pain and Denies heartburn Musc Denies myalgias, Denies arthralgias and Denies joint swelling Skin/Breast Denies rash Neuro Denies memory loss and Denies seizure-like activity Psych Denies abnormal sleep pattern, Denies anxiety and Denies memory loss Endo Denies excessive sweating, Denies fatigue and Denies heat intolerance Vamsi/Lymph Denies easy bruising Aller/Immun Denies itchy eyes, Denies seasonal rhinorrhea and Denies wheezing Physical Exam Vital Signs: Last Vital Signs Pulse 96 08/03/24 14:37 BP 138/64 08/03/24 14:37 Pulse Ox 95 08/03/24 14:37 Oxygen Delivery Method Room Air 08/03/24 14:37 BMI result Body Mass Index 56.8 Const General: no acute distress and alert Nutritional Appearance: obese Orientation/consciousness: Other orientation findings ( oriented) HEENT Head: Yes atraumatic Eyes General: appearance normal, both eyes and all related structures Sclerae: sclerae normal EOM: EOMs intact bilaterally Neck Neck: Yes supple Lymphatic: no lymphadenopathy noted Resp Effort & Inspection: normal respiratory effort and no use of accessory muscles Auscultation: clear to auscultation bilaterally Cardio Rate: regular rate Rhythm: regular rhythm Heart sounds: no gallops, no murmurs and no rubs Skin General skin exam: other ( warm) Extrem General: No clubbing, No cyanosis and No edema Assessment & Plan Assessment & Plan (1) Asthma: Code(s): J45.909 - Unspecified asthma, uncomplicated Category: Medical Plan: Well controlled on Trelegy and albuterol MDI. Continue current regimen. (2) BETSY (obstructive sleep apnea): Code(s): G47.33 - Obstructive sleep apnea (adult) (pediatric) Category: Medical Plan: Well controlled on current CPAP therapy. Continue CPAP therapy. Coding Level of Care Code Est Pt Level 4 (03628) Diagnoses Asthma J45.909 BETSY (obstructive sleep apnea) G47.33
== END 2024-08-03 14:50 | disposition home or self-care (01) ==
LOC: HO.HPS 14:32
PROVIDERS: PCP Family Medicine; Visit Provider Internal Medicine Pulmonary Disease
DX: J45.909 Unspecified asthma, uncomplicated (principal); G47.33 Obstructive sleep apnea (adult) (pediatric)
CPT/HCPCS: 99214

== ENCOUNTER → 2024-08-03 14:32 | Outpatient (BNVA) | payer OTHER, SELFPAY | PROVIDERS: PCP Family Medicine; Visit Provider Internal Medicine Pulmonary Disease | DX: J45.41 Moderate persistent asthma with (acute) exacerbation (principal); E66.2 Morbid (severe) obesity with alveolar hypoventilation; Z68.43 Body mass index [BMI] 50.0-59.9, adult; Z99.89 Dependence on other enabling machines and devices | CPT/HCPCS: 99212 ==

== ENCOUNTER → 2025-06-15 23:59 | Outpatient (BNV) | payer OTHER, SELFPAY | PROVIDERS: PCP Family Medicine; Visit Provider Family Medicine | DX: I26.99 Other pulmonary embolism without acute cor pulmonale (principal); J96.01 Acute respiratory failure with hypoxia; I10 Essential (primary) hypertension | CPT/HCPCS: G0180 ==

== ENCOUNTER 2025-07-10 13:49 | Outpatient (AMB) | payer OTHER, SELFPAY ==
--- OUTSIDE RECORDS SUMMARY | 2023-07-09 08:51 | XMS_ITS | Encounter Summary ---
Author Organization [facility] Address [address] [place] [id number] Phone Care Team Providers Care Poured Concrete Wall Technician Name Role Phone Erich Shields MD Primary Care Provider Encounter Details Date Type Department Care Team (Late st Contact Info) Description 07/09/2023 8:51 AM EDT Hospital Encounter [facility] [address] [place] [id number] Isatu Burgess CNP [address] [place] [address] Social History Tobacco Use Types Packs/Day Years Used Date Smoking Tobacco: Never Assessed Education Answer Date Recorded Are you interested in more education? Not on jackson e 07/09/2023 Are you concerned about learning? Not on file 07/09/2023 No 07/09/2023 No 07/09/2023 Digital Access Answer Date Recorded No 07/09/2023 No 07/09/2023 Reliable internet access at home? Not on file 07/09/2023 Device with a working camera? Not on file Sex and Gender Information Value Date Recorded Sex Assigned at Not on file Legal Sex Male 9:28 PM EDT Gender Identity Not on file Sexual Orientation Not on file documented as of this encounter Plan of Treatment Not on file documented as of this encounter Procedures Procedure Name Priority Date/Time Associated Diagnosis Comments XR CHEST PA AND LATERAL 2 VIEWS Urgent/patient waiting 07/09/2023 8:55 AM EDT Shortness of breath documented in this encounter Results * XR CHEST PA AND LATERAL 2 VIEWS (07/09/2023 8:55 AM EDT) Anatomical Region Laterality Modality Chest Computed Radiogr aphy 07/09/2023 9:00 AM EDT Impressions 07/09/2023 9:02 AM EDT 1. No pneumonia or acute cardiopulmonary process. 2. Enlargement of the cardiac silhouette. 3. Enlargement of the main pulmonary artery, which may represent pulmonary hypertension. Narrative 07/09/2023 9:02 AM EDT XR CHEST PA AND LATERAL 2 VIEWS COMPARISON: None. FINDINGS: Devices/Tubes/Lines: None. Lungs: Low lung volumes with bibasilar atelectasis. No focal consolidation or pulmonary edema. Pleura: No pleural effusion or pneumothorax. Heart/Mediastinum: Enlargement of the cardiac silhouette. Enlargement of the main pulmonary artery. Bones/Soft Tissues: No acute osseous abnormality. Mild multilevel degenerative changes of the thoracic spine. Procedure Note Luis Alberto Torres MD - 07/09/2023 XR CHEST PA AND LATERAL 2 VIEWS COMPARISON: None. FINDINGS: Devices/Tubes/Lines: None. Lungs: Low lung volumes with bibasilar atelectasis. No focal consolidationor pulmonary edema. Pleura: No pleural effusion or pneumothorax. Heart/Mediastinum: Enlargement of the cardiac silhouette. Enlargement ofthe main pulmonary artery. Bones/Soft Tissues: No acute osseous abnormality. Mild multileveldegenerative changes of the thoracic spine. IMPRESSION: 1. No pneumonia or acute cardiopulmonary process. 2. Enlargement of the cardiac silhouette. 3. Enlargement of the main pulmonary artery, which may representpulmonary hypertension. Isatu Burgess CLEANER IMG XR CHEST Final Resul t documented in this encounter Visit Diagnoses Not on filedocumented in this encounter Additional Health Concerns Infection Onset Date Last Indicated Resolved Time CoV-Risk 07/09/2023 07/09/2023 07/20/2023 1:22 AM EDT documented as of this encounter Care Teams Poured Concrete Wall Technician Relationship Specialty Start Date End Date Erich Shields MD [address] [place] [id number] PCP - General Family Medicine 07/09/23 documented as of this encounter Additional Source Comments The information contained in this document represents components of the legal health record. It is not the complete legal health record.[facility]
--- NOTE | 2025-07-10 13:57 | MHC.PC.OV ---
Vital Signs 07/10/25 14:08 Height 5 ft 10 in Weight 387 lb BMI 55.5 BP 124/60 Blood Pressure Location Lt radial Position Sitting Respiration 16 Pulse 81 Pulse Source Pulse Oximeter Temp 98.7 F Temp Source Temporal Artery Scan Pulse Oximetry (%) 94 Oxygen Delivery Method Room Air Intake Visit Reasons: [id number] from [facility]ir, Mass on his kidney Intake Note: Denis presents in the office today for a hospital discharge. Patient has a mass on his kidneys. Allergies No Known Allergies Allergy (Verified 07/10/25 14:01) Medication List - Last Reconciled 07/10/25 by Erich Shields MD albuterol sulfate 90 mcg/actuation 2 puffs PO Q4-6H PRN fluticasone furoate-vilanterol 200-25 mcg/dose (Breo Ellipta) 1 inh inhalation DAILY folic acid 1 mg PO DAILY furosemide (Lasix) 40 mg PO DAILY lisinopril 30 mg PO DAILY lisinopril 10 mg PO BID pregabalin (Lyrica) 50 mg PO BEDTIME umeclidinium 62.5 mcg/actuation (Incruse Ellipta) 1 inh inhalation DAILY Tobacco use date assessed: 07/10/25 Dental Screening Dental Screen Date: 07/10/25 Did you have a dental visit in the last 12 months?: No Did you have a dental problem in the last 6 months where you did not have access to dental care?: No Was dental information given to patient?: Patient declined HPI [id number] from [facility]ir, Mass on his kidney HPI Details Patient w/ recent h/o PE in April went to [facility] in late May for lower extremity pain bilaterally and was treated with antibiotics as outpatient treatment. Patient went back to the ED on 06/26/2025 for worsening bilateral lower extremity pain CT scan did not show necrotizing fasciitis though he did have an incidental renal mass. Ultrasound of lower extremities did not reveal any deep vein thrombosis Patient was admitted for worsening cellulitis with increasing pain. Patient was given Zosyn and de-escalated to Augmentin. Was discharged to complete Augmentin at home. Gabapentin switched to Lyrica Furosemide increased to 40 mg daily. Recommended increasing activity Pt notes he has an appt. with Dr. Fuentes, Urology to f/u for R renal mass. Pt notes he has an appt. with pulmonology for his sleep apnea - has been having issues with his CPAP machine. [facility] Medical History History of pneumonia Obesity hypoventilation syndrome Moderate persistent asthma with (acute) exacerbation Moderate persistent asthma History of pulmonary embolism History of Hodgkin's lymphoma Hyperlipidemia Hypertension, essential, benign Morbid obesity with BMI of 60.0-69.9, adult Post covid-19 condition, unspecified (~08/2021) BETSY (obstructive sleep apnea) Asthma Surgical History History of tonsillectomy Family History Mother Hypertension Father Hypertension Diabetes Other Mental health disorder Social History (Updated 07/10/25 @ 14:08 by Zabrina Parker CMA) Household Members: Spouse and Children Housing: House Do you presently have visiting nurse or other home services: No Alcohol intake: current Alcohol intake frequency: holidays/special occasions only Alcohol type: other Patient Tobacco Use Status: Never used Tobacco e-Cigarette/Vaping Use: Never Used Second Hand Smoke Exposure: No service: No Current occupational status: employed 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 1. Little interest or pleasure in doing things: not at all 2. Feeling down, depressed, or hopeless: not at all 3. Trouble falling or staying asleep, or sleeping too much: not at all 4. Feeling tired or having little energy: several days 5. Poor appetite or overeating: several days 6. Feeling bad about yourself - or that you are a failure or have let yourself or your family down: not at all 7. Trouble concentrating on things, such as reading the newspaper or watching television: not at all 8. Moving or speaking so slowly that other people could have noticed. Or the opposite - being so fidgety or restless that you have been moving around a lot more than usual: not at all 9. Thoughts that you would be better off or of hurting yourself in some way: not at all Total score: 2 Depression Screening Interpretation: Negative Depression Screening Done: Yes 02143 - PHQ-9 Billing: Yes Source: Developed by Drs. Marcus Harley, Tarah Crespo, Rylan Nuno and colleagues, with an educational mel from [employer]. Thrive Questionnaire Date Thrive assessed: 07/10/25 I am a: Patient What is your living situation today?: I have a steady place to live Within the past 12 months, did the food you bought not last and you didn't have the money to get more?: Never true Within the past 12 months, did you worry whether your food would run out before you got money to buy more?: Never true Do you have trouble paying for medicines?: No Do you have trouble getting transportation to medical appointments?: I choose not to answer this question Do you have trouble paying your heating and electricity bill?: No Do you have trouble taking care of your child, family member or friend?: No Do you have trouble with day-to-day activities such as bathing, preparing meals, shopping, managing finances, etc.?: I choose not to answer this question Are you currently unemployed and looking for a job?: I choose not to answer this question Are you interested in more education?: No Please select the resources that you would like help with: None Currently or been in a relationship where the following occur: No concerns reported THRIVE Score: 0 YANE-7 AMB Questionnaire YANE-7 Date YANE - 7 assessed: 07/10/25 Feeling nervous, anxious, or on edge: 0 = Not at all Not being able to stop or control worryin = Not at all Worrying too much about different things: 0 = Not at all Trouble relaxin = Not at all Being so restless that it is hard to sit still: 0 = Not at all Becoming easily annoyed or irritable: 0 = Not at all Feeling afraid as if something awful might happen: 0 = Not at all Total YANE-7 score (0-4 normal; 5-9 mild; 10-14 moderate; 15-21 severe): 0 Source: Developed by Drs. Marcus Harley, Rylan Vazquez and colleagues, with an educational mel from [employer]. YANE-7 Assessment Billing YANE-7 Assessment Tool: YANE-7 Assessment 26482 Review of Systems Const Denies chills, Denies fatigue, Denies fever(s), Denies headache(s) and Denies weakness ENT Denies dizziness and Denies headache(s) Card Denies dyspnea Resp Denies cough, Denies dyspnea, Denies wheezing and Denies other (shortness of breath) Musc Denies numbness and Denies tingling Neuro Denies dizziness, Denies headache(s), Denies numbness, Denies tingling and Denies weakness Psych Denies anxiety and Denies depression Endo Denies fatigue Aller/Immun Denies wheezing Physical exam (Primary Care) Vital Signs: Last Vital Signs Temp 98.7 F 07/10/25 14:08 Pulse 81 07/10/25 14:08 Resp 16 07/10/25 14:08 BP 124/60 07/10/25 14:08 Pulse Ox 94 07/10/25 14:08 Oxygen Delivery Method Room Air 07/10/25 14:08 BMI result Body Mass Index 55.5 Tobacco/Smoking Status: Tobacco use Status Tobacco use date assessed 07/10/25 07/10/25 14:13 Patient Tobacco Use Status Never used Tobacco 07/10/25 14:08 e-Cigarette/Vaping Use Never Used 07/10/25 14:08 PHQ-9: PHQ-9 Score PHQ-9: Total score 2 07/10/25 14:13 Depression Screening Interpretation: Negative Thrive Assessment: Date of Thrive Assessment Date Thrive assessed 07/10/25 07/10/25 14:00 Currently or been in a relationship where the following occur: No concerns reported Const General: well developed; No acute distress Nutritional Appearance: well nourished and obese morbidly obese Orientation/consciousness: patient oriented x3 [facility]: Yes normocephalic and Yes atraumatic Eyes General: appearance normal, both eyes and all related structures Pupils: Equal, round and reactive pupils present EOM: EOMs intact bilaterally Resp Effort & Inspection: normal respiratory effort Auscultation: clear to auscultation bilaterally Cardio Rate: regular rate Rhythm: regular rhythm Heart sounds: S1 normal heart sound present, S2 normal heart sound present, no gallops, no murmurs and no rubs Neuro General: patient oriented x3 and gait normal Cranial nerves: Yes Equal, round and reactive pupils present Psych Affect: normal affect Coding Level of Care Code TCM High MDM <= 14 days Diagnoses Cellulitis of both lower extremities L03.115; L03.116 Edema of lower extremity due to peripheral venous insufficiency I87.2 Right renal mass N28.89 BETSY (obstructive sleep apnea) G47.33 History of pulmonary embolism Z86.711 Additional Codes YANE-7 Assessment Billing - YANE-7 Assessment Tool: YANE-7 Assessment 07844 ([id number]) PHQ-9 - 34116 - PHQ-9 Billing: Yes ([id number]) Assessment & Plan Assessment & Plan (1) Cellulitis of both lower extremities: Code(s): L03.115 - Cellulitis of right lower limb; L03.116 - Cellulitis of left lower limb Category: Medical (2) Edema of lower extremity due to peripheral venous insufficiency: Code(s): I87.2 - Venous insufficiency (chronic) (peripheral) Category: Medical (3) Right renal mass: Code(s): N28.89 - Other specified disorders of kidney and ureter Category: Medical (4) BETSY (obstructive sleep apnea): Code(s): G47.33 - Obstructive sleep apnea (adult) (pediatric) Category: Medical (5) History of pulmonary embolism: Comment: (Left sided - after chemo, 09/2010 - did 6 months warfarin) Code(s): Z86.711 - Personal history of pulmonary embolism Category: Medical Plan Patient w/ recent h/o PE in April went to [facility] in late May for lower extremity pain bilaterally and was treated with antibiotics as outpatient treatment. Patient went back to the ED on 06/26/2025 for worsening bilateral lower extremity pain CT scan did not show necrotizing fasciitis though he did have an incidental renal mass. Ultrasound of lower extremities did not reveal any deep vein thrombosis Patient was admitted for worsening cellulitis with increasing pain. Patient was given Zosyn and de-escalated to Augmentin. Was discharged to complete Augmentin at home. Gabapentin switched to Lyrica Furosemide increased to 40 mg daily. Recommended increasing activity Use CPAP Patient says his legs are feeling much better. Taking Eliquis for pulmonary emboli Incidental exophytic isodense mass in the anterior aspect of the lower midportion of the left kidney measuring 3.3 x 3.3 x 3.0 cm. This does not demonstrate any calcification and hears unchanged from study of 04/29/2025. This study remains suspicious for renal cell malignancy. A follow-up MRI utilizing renal mass protocol is recommended. Patient is now being followed by Dr. Fuentes, [place] [facility] An MRI is ordered. Will request notes and report Patient has not received Lyrica yet as he is waiting for prior authorization clearance. Only taking gabapentin 300 mg at bedtime and he notes that this not adequate. Will give him a prescription for gabapentin 300 mg t.i.d. He can switch to Lyrica if/when he is able to get it Given patient's morbid obesity and multiple chronic conditions, patient is unable to find work and unable to work in any capacity. Recommend disability paperwork. He will obtain this and we will follow-up in a month Medications: New gabapentin ER 300 mg PO TID 90 tabs 0RF 30 days Changed From lisinopril 30 mg PO DAILY 90 days 90 tabs 3RF To lisinopril Patient taking 20mg 30 mg PO DAILY
[2025-07-10 14:08] VITALS: BP 124/60; PULSE 81; RESP 16; TEMP 37.1; O2SAT 94; BMI 55.5
--- OUTSIDE RECORDS SUMMARY | 2025-07-10 16:49 | XMS_ITS | Clinical Summary ---
Author Organization [facility] Address [address] [place] [id number] Care Team Providers Care Terrazzo Polisher Helper Name Role Phone Unknown, Provider MD Primary Care Provider Unava ilable Social History Tobacco Use Types Packs/Day Years Used Date Smoking Tobacco: Never Assessed Sex and Gender Information Value Date Recorded Sex Assigned at Not on file Legal Sex Male 18:50 EST Gender Identity Not on file Sexual Orientation Not on file Plan of Treatment Health Maintenance Due Date Last Done Comments Hepatitis C Screen 1975 Hepatitis B Vaccine (1 of 3 - 19+ 3-dose series) 07/17 COVID-19 Vaccine (2023- season) 2024 Care Teams Terrazzo Polisher Helper Relationship Specialty Start Date End Date Unknown, Provider, PCP - General 07/30/10
--- OUTSIDE RECORDS SUMMARY | 2025-07-10 16:50 | XMS_ITS | Clinical Summary ---
Author Organization [facility] Address [address] [place] [id number] Phone Care Team Providers Care Gis Programmer Name Role Phone Erich Shields MD Primary Care Provider Allergies No known active allergies Medications lisinopril (PRINIVIL,ZESTRI L) 20 MG tablet Take 1 tablet by mouth daily. Active TRELEGY ELLIPTA 200-62.5-25 mcg inhaler 07/04/2023 Active hydroCHLOROthiaz octavio (HYDRODIURIL) 25 MG tablet Take 2 tablets by mouth every morning. 06/16/2023 Active hydroCHLOROthiaz octavio (HYDRODIURIL) 25 MG tablet Take 1 tablet by mouth daily. 07/08/2022 Active doxycycline monohydrate (MONODOX) 100 MG capsule Take 1 capsule (100 mg total) by mouth 2 (two) times a day. 20 capsule 07/09/2023 Active Active Problems Problem Noted Date Diagnosed Date Malignant lymphoma, Hodgkin's type 07/09/2023 07/09/2023 DVT (deep venous thrombosis) 07/09/2023 Obstructive sleep apnea 11/25/2020 07/09/20 23 Overview (07/09/2023): Per [facility] pulm note 10/2020, starting cpap Asthma 10/18/2020 07/09/2023 Overview (07/09/2023): Per pulm 09/2020 Hyperlipidemia 01/25/2020 07/09/2023 Hypertension 04/28/2018 07/09/2023 Fatty liver 04/28/2018 07/09/2023 Immunizations Immunization Administration Dates Next Due [id number] 07/28/2011 INFLUENZA, SPLIT VIRUS, TRIVALENT W/ PRESERVATIV E IM 12/01/2020,05/31/2017 Influenza Quadrivalent MDCK Preservative Free IM 08/26/2021,06/06/2018 Influenza Quadrivalent Preservative Free IM 03/0 03/2021 Influenza, Unspecified Formulation 12/01/2020, Pneumococcal polysaccharide PPSV23 08/26/2021 Tdap 02/01/2012 Social History Tobacco Use Types Packs/Day Years [...] on file Sexual Orientation Not on file Last Filed Vital Signs Vital Sign Reading Time Taken Comments Blood Pressure 155/83 07/09/2023 8:37 AM EDT Pulse 93 07/09/2023 8:37 AM EDT Temperature 37.6 C (99.7 F) 07/09/2023 8:37 AM EDT Respiratory Rate 18 07/09/2023 8:37 AM EDT Oxygen Saturation 95% 07/09/2023 8:37 AM EDT Inhaled Oxygen Concentration - - Weight 178.6 kg (393 lb 11.2 oz) 05/01/2016 9:36 AM EDT Height 177.8 cm (5' 10 ) 05/01/2016 9:36 AM EDT Body Mass Index 56.49 05/01/2016 9:36 AM EDT Plan of Treatment Health Maintenance Due Date Last Done Comments CREATININE LEVEL 1975 POTASSIUM LEVEL 1975 DEPRESSION SCREENING 1987 SMOKING Hx and SMOKELESS TOBACCO SCREENING 1988 HEPATITIS C SCREENING 1993 HIV ONE-TIME SCREENING (18-65 YEARS) 1993 LIPID PANEL 09/24/2016 09/24/2011 COLOGUARD 2020 COLONOSCOPY 2020 COLORECTAL CANCER SCREENING 2020 FIT TEST 2020 FOBT 2020 SIGMOIDOSCOPY 2020 VIRTUAL COLONOSCOPY 2020 Adult Td,Tdap Booster 01/31/2022 02/01/2012 PNEUMOCOCCAL VACCINES (0-49 years) (2 of 2 - PCV) 08/26/2022 08/26/2021 BLOOD PRESSURE 01/08/2024 07/09/2023 INFLUENZA VACCINE (#1) 2025 , 12/01/2020, 12/01/2020, Additional history exists COVID-19 VACCINE ( season) 2025 02/22/2021, 02/01/2021 HEPATITIS A VACCINES Aged Out No long er eligible based on patient's age to complete this topic HIB VACCINES Aged Out No longer eligi ble based on patient's age to complete this topic MENINGOCOCCAL VACCINES (ACWY) Aged Out No longer eligible based on patient's age to complete this topic MENINGOCOCCAL VACCINES (B) Aged Out N o longer eligible based on patient's age to complete this topic Medical Devices Not on file Procedures Procedure Name Priority Date/Time Associated Diagnosis Comments OUTSIDE LDL Routine 09/24/2011 from Last 3 Months or Most Recently Relevant to Health Maintenance Results * Outside LDL (09/24/2011) LDL - External 136 50 - 250 mg/ml Historical Provider LAB BLOOD ORDERABLES Sheri l Result from Last 3 Months or Most Recently Relevant to Health Maintenance [facility] [employer]MINISTRATORS [facility] ADMIN[employer]RATORS [facility] POS [facility] [employer] Care Teams Gis Programmer Relationship Specialty Start Date End Date Erich Shields MD [address] [place] [id number] PCP - General Family Medicine 07/09/23 Additional Source Comments The information contained in this document represents components of the legal health record. It is not the complete legal health record.[facility]
== END 2025-07-10 14:26 | disposition home or self-care (01) ==
LOC: HO.HMCFM 13:50
PROVIDERS: PCP Family Medicine; Visit Provider Family Medicine
DX: L03.115 Cellulitis of right lower limb (principal); I87.2 Venous insufficiency (chronic) (peripheral); L03.116 Cellulitis of left lower limb; N28.89 Other specified disorders of kidney and ureter; G47.33 Obstructive sleep apnea (adult) (pediatric); Z86.711 Personal history of pulmonary embolism

== ENCOUNTER 2025-07-10 13:49 | Outpatient (REF) | payer OTHER, SELFPAY ==
[2025-07-10 18:26] LABS: Appearance Urine Clear; Glucose Urine UA Negative (Negative); PH 6.5 (5.0-9.0); Specific Gravity - Urine 1.015 (1.005-1.025)
== END 2025-07-10 13:50 | disposition home or self-care (01) ==
LOC: HO.WFDLDS 13:49
PROVIDERS: PCP Family Medicine; Visit Provider Family Medicine
DX: Z00.00 Encounter for general adult medical examination without abnormal findings (principal); I10 Essential (primary) hypertension; L03.115 Cellulitis of right lower limb; L03.116 Cellulitis of left lower limb; I87.2 Venous insufficiency (chronic) (peripheral); N28.89 Other specified disorders of kidney and ureter; G47.33 Obstructive sleep apnea (adult) (pediatric); Z79.899 Other long term (current) drug therapy; Z86.711 Personal history of pulmonary embolism
CPT/HCPCS: 81003; 82570; 96127; 99212